=== PATIENT | male | born 1960 | race Caucasian/White ===

== ENCOUNTER → 2017-01-20 | Outpatient (CLI) | payer BC ==
[~2017-01-20] MED LIST: ASPI81TA28 PO; DILT300C PO; GABA-112 PO; GABA1CAP PO; INDA2.5T PO; LEVO200T6 PO; LSN20 PO; METO50TA7 PO; MULTTAB58 PO; PANT40TA PO; POTA-335 PO; TADA10TA PO
--- NOTE | 2017-01-21 09:39 | DIAGNOSTIC IMAGING REPORT ---
MRI OF THE LEFT SHOULDER WITHOUT CONTRAST CLINICAL HISTORY: Persistent left shoulder pain following injury on October 29, 2016. Evaluate for rotator cuff tear. COMPARISON STUDY: No previous studies for comparison. FINDINGS: There is widening of the left AC joint interval which measures 9 mm. There is extensive fluid within the joint space of the acromioclavicular joint. There is a bone fragment which articulates with the clavicle. There is mild no evidence for dislocation of the left glenohumeral joint. There is slight posterior subluxation of humeral head with respect to the glenoid. The proximal long head of biceps tendon is intact. There is mild to moderate arthritis of the left glenohumeral joint. There is truncation with abnormal signal within the labrum which suggests a chronic tear. There may be a small paralabral cyst along the posterior aspect of the labrum. There is no full-thickness tear of the rotator cuff. Supraspinatus tendinopathy is present. IMPRESSION: 1. Left acromioclavicular joint widening with extensive fluid within the joint space and adjacent soft tissues. This may reflect an AC joint separation. Bone fragment which articulates with the clavicle could result reflect a scapular fracture or os acromiale with associated injury. 2. No full-thickness rotator cuff tear. Supraspinatus tendinopathy. 3. Suspected degenerative labral tear. Electronically signed by: Panda Mora M.D. 01/21/2017 9:38 AM Dictated Date/Time: 01/20/2017 6:30 PM
== END | disposition home or self-care (01) ==
LOC: C.MRI 17:20
PROVIDERS: ATTEND Orthopaedic Surgery Sports Medicine
DX: M25.512 Pain in left shoulder (principal); M75.92 Shoulder lesion, unspecified, left shoulder; R93.7 Abnormal findings on diagnostic imaging of other parts of musculoskeletal system

== ENCOUNTER → 2017-03-25 | Outpatient (CLI) | payer BC ==
[2017-03-25 12:24] LABS: BASO % 0.5 %; BASO ABS # 0.04 K/uL (0-0.2); COMPLETE YES; EOS % 5.9 %; HEMATOCRIT 47.8 % (42-52); IG% 0.1 %; LYMPH ABS # 2.03 K/uL (1.2-3.4); MEAN CELL VOLUME 80.5 fL (80-100); MEAN CORPUSCULAR HEMOGLOBIN 26.8 pg (25-34); MEAN CORPUSCULAR HGB CONC 33.3 g/dl (32-36); MEAN PLATELET VOLUME 10.1 fL (7.4-10.4); MONO % 5.4 %; NEUT % 62.1 %; PLATELET COUNT 235 K/uL (130-400); RED BLOOD COUNT 5.94 M/uL (4.7-6.1); WHITE BLOOD COUNT 7.82 K/uL (4.8-10.8)
[2017-03-25 12:38] LABS: URINE APPEARANCE CLEAR (CLEAR); URINE BILIRUBIN NEG (NEG); URINE COLOR YELLOW; URINE EPITHELIAL CELL AUTO 0-5 /lpf (0-5); URINE NITRITE NEG (NEG); URINE PH 8.5 (4.5-7.5); URINE SPECIFIC GRAVITY 1.021 (1.000-1.030); UROBILINOGEN NEG (NEG)
[2017-03-25 12:45] LABS: MANUAL MICROSCOPIC REQUIRED? NO; REVIEW REQ? NO
[2017-03-25 13:31] LABS: ESTIMATED AVERAGE GLUCOSE 114 mg/dl; HA1C FLAG Normal (Normal)
[2017-03-25 13:39] LABS: BLOOD UREA NITROGEN 19 mg/dl (7-18); BUN/CREATININE RATIO 17.2 (10-20); CARBON DIOXIDE 30 mmol/L (21-32); CHLORIDE 105 mmol/L (98-107); CHOLESTEROL 202 mg/dl (0-200); GLUCOSE 102 mg/dl (70-99); POTASSIUM 3.2 mmol/L (3.5-5.1); SODIUM 143 mmol/L (136-145); TRIGLYCERIDES 241 mg/dl (0-150); VERY LOW DENSITY LIPOPROT CALC 48 mg/dl
[2017-03-25 13:46] LABS: CALCIUM 9.2 mg/dl (8.5-10.1)
[2017-03-25 13:49] LABS: CHOLESTEROL/HDL RATIO 5.9; HDL CHOLESTEROL 34 mg/dl; LDL CHOLESTEROL CALCULATED 120 mg/dl; PROSTATE SPECIFIC ANTIGEN 0.446 ng/ml (0.000-4.000); THYROID STIMULATING HORMONE 0.033 uIu/ml (0.300-4.500)
--- NOTE | 2017-03-31 14:25 | CODING QUERY MEDICAL NECESSITY ---
CQSUPPORTING DIAGNOSIS NEEDED A supporting diagnosis is required for the test/procedure performed on this patient in order for us to be reimbursed by the patient's insurance. Please provide a supporting diagnosis for the following test/procedure listed below next to the test name along with your signature. *If there is no additional diagnosis for this patient that would support the following test/procedure please document that below next to the test/procedure. Test(s)/Procedure(s) that require a supporting diagnosis: DOS 03/25/17 PROSTATE SPECIFIC Provider Signature: Date: Thank you Leona Huffman [employer] Once completed, please kindly fax back to [phone] For questions please call [phone]
== END | disposition home or self-care (01) ==
LOC: C.LAB1850 10:18
PROVIDERS: ATTEND Internal Medicine
DX: I10 Essential (primary) hypertension (principal); Z00.00 Encounter for general adult medical examination without abnormal findings; R73.9 Hyperglycemia, unspecified; Z12.5 Encounter for screening for malignant neoplasm of prostate

== ENCOUNTER → 2017-11-03 | Outpatient (CLI) | payer BC ==
--- NOTE | 2017-11-03 16:04 | DIAGNOSTIC IMAGING REPORT ---
SINUSES MIN 3 VIEWS ROUTINE CLINICAL HISTORY: J01.90 Acute [id number] COMPARISON STUDY: No previous studies for comparison. FINDINGS: There are bilateral maxillary sinus air-fluid levels. The sphenoid and frontal sinuses appear clear. Mild mucosal disease within the ethmoid sinuses is suspected.. IMPRESSION: Bilateral maxillary sinus air-fluid levels. Electronically signed by: Lauro Drew M.D. 11/03/2017 4:03 PM Dictated Date/Time: 11/03/2017 4:02 PM
== END | disposition home or self-care (01) ==
LOC: C.LAB1850 10:47
PROVIDERS: ATTEND Internal Medicine
DX: J01.90 Acute sinusitis, unspecified (principal); G62.9 Polyneuropathy, unspecified

== ENCOUNTER → 2018-02-06 | Outpatient (CLI) | payer BC ==
[~2018-02-06] MED LIST changes: +GABA100C13 PO; -GABA1CAP PO; -METO50TA7 PO; +METO50TA8 PO
== END | disposition home or self-care (01) ==
LOC: C.LABSPEC 17:01
PROVIDERS: ATTEND Physician Assistant
DX: J32.9 Chronic sinusitis, unspecified (principal)

== ENCOUNTER → 2018-02-17 | Outpatient (CLI) | payer BC ==
[2018-02-17 09:39] LABS: EOS % 0.2 %; EOS ABS # 0.02 K/uL (0-0.5); HEMATOCRIT 46.7 % (42-52); HEMOGLOBIN 16.5 g/dL (14.0-18.0); IG# 0.03 K/uL (0.00-0.02); LYMPH % 18.6 %; LYMPH ABS # 2.22 K/uL (1.2-3.4); MEAN CELL VOLUME 82.1 fL (80-100); MEAN CORPUSCULAR HGB CONC 35.3 g/dl (32-36); MEAN PLATELET VOLUME 9.9 fL (7.4-10.4); MONO % 4.1 %; MONO ABS # 0.49 K/uL (0.11-0.59); NEUT % 76.8 %; NEUT ABS # 9.18 K/uL (1.4-6.5); PLATELET COUNT 239 K/uL (130-400); RED CELL DISTRIBUTION WIDTH CV 13.2 % (11.5-14.5); RED CELL DISTRIBUTION WIDTH SD 39.9 fL (36.4-46.3); WHITE BLOOD COUNT 11.94 K/uL (4.8-10.8)
[2018-02-17 10:09] LABS: BLOOD UREA NITROGEN 15 mg/dl (7-18); CALCIUM 9.3 mg/dl (8.5-10.1); CARBON DIOXIDE 30 mmol/L (21-32); CREATININE 1.11 mg/dl (0.60-1.40); GLUCOSE 140 mg/dl (70-99); POTASSIUM 3.3 mmol/L (3.5-5.1); SODIUM 138 mmol/L (136-145)
[2018-02-17 10:17] LABS: HEMOGLOBIN A1C 5.5 % (4.5-5.6)
[2018-02-17 10:23] LABS: CHOLESTEROL 157 mg/dl (0-200); LDL CHOLESTEROL CALCULATED 81 mg/dl
== END | disposition home or self-care (01) ==
LOC: C.LAB1850 07:10
PROVIDERS: ATTEND Internal Medicine
DX: J01.90 Acute sinusitis, unspecified (principal)

== ENCOUNTER → 2018-03-04 | Outpatient (CLI) | payer BC ==
--- NOTE | 2018-03-04 07:34 | DIAGNOSTIC IMAGING REPORT ---
FUSION CT SINUSES W/O CLINICAL HISTORY: CHRONIC SINUSITIS COMPARISON STUDY: Conventional radiographic study dated 11/03/2017 FINDINGS: There is no evidence of hydrocephalus. No orbital lesions are visualized. There is an opacified left-sided sphenoid air cell. There is complete opacification of the left maxillary sinus. There is mild left anterior ethmoid sinus disease. There is minimal anterior right-sided ethmoid sinus disease. There is left-sided frontal sinus mucosal thickening. There is minor right-sided exercise mucosal thickening. The right ostomy unit appears normal. There is partial pneumatization of the left middle turbinate. The ostial portion of the left ostiomeatal unit is occluded. There is possible bony destruction involving the medial wall the left maxillary antrum with soft tissue extending into the left nasal cavity. Direct visualization is recommended to exclude an antrochoanal polyp or aggressive soft tissue lesion. The left ethmoid notches are unprotected. The right ethmoid notches is equivocally protected. The right olfactory groove measures 5 mm. The left olfactory groove measures 7 mm. IMPRESSION: 1. Left ostomy unit obstructive pattern with complete opacification left maxilla sinus, left ethmoid sinus disease, left frontal sinus disease 2. Partial pneumatization of the left middle turbinate 3. Possible destructive changes involving the medial wall the left maxilla sinus with possible soft tissue extending into the left nasal cavity. Direct visualization is recommended in follow-up Electronically signed by: Lauro Drew M.D. 03/04/2018 7:32 AM Dictated Date/Time: 03/04/2018 7:27 AM
== END | disposition home or self-care (01) ==
LOC: C.CTS 07:09
PROVIDERS: ATTEND Physician Assistant
DX: J32.9 Chronic sinusitis, unspecified (principal)

== ENCOUNTER 2019-03-10 09:21 | Inpatient (IN) ==
--- OUTSIDE RECORDS SUMMARY | 2019-03-10 09:25 | External Medical Summary | Continuity of Care Document ---
:1960 Author Name Radha Smalls, Provider Address Unavailable Unavailable , Care Team Providers Name Role Phone Kinjal Wolff PA-C Unavailable [email or web address] Wendi Smalls, Jonathan Unavailable [email or web address] Elvin Smalls, [email or web address] OCONNOR Unavailable Unavailable Unavailable Unavailable Unavailable Problems Fatigue (780.79) (R53.83) Xerostomia (527.7) (R68.2) Hiatal hernia (553.3) (K44.9) Anemia (285.9) (D64.9) Tachycardia (785.0) (R00.0) Headache (784.0) (R51) Contusion of chest (922.1) (S20.219A) Rib fracture (807.00) (S22.39XA) Need for influenza vaccination (V04.81) (Z23) Lumbar radiculopathy (724.4) (M54.16) Nasal septal deviation (470) (J34.2) Chronic sinusitis (473.9) (J32.9) Reactive lymphadenopathy (785.6) (R59.9) Norton's esophagus (530.85) (K22.70) Peripheral neuropathy (356.9) (G62.9) Perforated nasal septum (478.19) (J34.89) Sinusitis (473.9) (J32.9) Hypertension (401.9) (I10) Hyperglycemia (790.29) (R73.9) Hypothyroidism (244.9) (E03.9) Gastroesophageal reflux disease (530.81) (K21.9) Osteoarthritis (715.90) (M19.90) Cough (786.2) (R05) Skin lesions (709.9) (L98.9) Allergies and Adverse Reactions No Known Drug Allergies (Allergy) Medications Tylenol Extra Strength 500 MG Oral Table t; TAKE 1 TABLET EVERY 4 TO 6 HOURS NEEDED. Start: 08-Dec-2014 Refills: 0 Levothyroxine Sodium 175 MCG Oral Tablet; Take 1 table t daily [place] Wolff Quantity: 90 Refills: 3 Metoprolol Succinate ER 50 MG Oral Table t Extended Release 24 Hour; TAKE 1 TABLET BY MOUTH EVERY DAY [place] Wolff Start: 26-Apr-2011 Quantity: 90 Refills: 3 Indapamide 2.5 MG Oral Tablet; TAKE 1 TABLET BY MOUTH EVERY DAY [place] Wolff Start: 26-Apr-2011 Quantity: 90 Refills: 3 Potassium Chloride Susan ER 20 MEQ Oral T ablet Extended Release; TAKE 1 TABLET BY MOUTH EVERY DAY [place] Wolff Start: 26-Apr-2011 Quantity: 90 Refills: 3 Lisinopril 20 MG Oral Tablet; TAKE 1 TABLET BY MOUTH E VERY [place] Wolff Start: 26-Apr-2011 Quantity: 90 Refills: 3 Pantoprazole Sodium 40 MG Oral Tablet De layed Release; TAKE 1 TABLET BY MOUTH EVERY DAY [place] Wolff Start: 26-Apr-2011 Quantity: 90 Refills: 3 Gabapentin 300 MG Oral Capsule; TAKE 1 C APSULE EVERY MORNING AND 2 CAPSULES EVERYEVENING [place] Wolff Start: 18-Jan-2016 Quantity: 270 Refills: 3 Multi-Vitamin TABS; TAKE 1 TABLET DAILY. Refills: 0 Aspirin 81 MG TABS; TAKE 1 TABLET DAILY. Refills: 0 Sildenafil Citrate 100 MG Oral Tablet; TAKE DIRECTED. Serina Borja Start: 27-Jul-2018 Quantity: 10 Refills: 1 Mupirocin 2 % External Ointment; APPLY SMALL AMOUNT IN SIDE NOSTRILS TWICE DAILY Serina Adame Start: 24-Sep-2018 Quantity: 1 22 GM Tube Refills: 3 Procedures History of hip surgery Status: Completed History of Ankle Repair Status: Complete d History of abdominal surgery Status: Com pleted History of Sinus Surgery Status: Complet ed Immunizations Influenza On: 22-Sep-2009 PPD On: 30-Apr-2011 12:27 Lot #: [id number], [employer] Influenza (Whole) On: 16-Aug-2011 15:29 Lot #: [id number], [employer] PPD On: 20-Jul-2012 15:46 Lot #: [id number], [employer] Influenza (Whole) On: 13-Nov-2012 15:52 Lot #: [id number], [employer] Influenza On: 29-Jul-2013 11:07 Lot #: [id number], [employer] PPD On: 29-Jul-2013 11:07 Lot #: [id number], [employer] Fluzone INJ On: 28-Jul-2014 10:43 Lot #: [id number], [employer] PPD On: 28-Jul-2014 10:45 Lot #: [id number], [employer] Influenza (Whole) On: 25-Jul-2015 11:56 Lot #: [id number], [employer] PPD On: 25-Jul-2015 11:57 Lot #: [id number], [employer] Influenza On: 24-Jul-2016 16:37 Lot #: [id number], [employer] PPD On: 24-Jul-2016 16:44 Lot #: [id number], [employer] Tubersol 5 UNIT/0.1ML Intradermal Solution On: 07-Jul-2017 1 4:33 Lot #: [id number], [employer] Fluzone Quadrivalent 0.5 ML Intramuscular Suspension On: Jun-2017 14:36 Lot #: [id number], [employer] Tubersol 5 UNIT/0.1ML Intradermal Solution On: 09-Jul-2018 1 1:07 Lot #: [id number], [employer] Flublok Quadrivalent 0.5 ML Intramuscular Solution Pre filled Syringe On: 31-Aug-2018 16:56 Lot #: [id number], [employer] Tubersol 5 UNIT/0.1ML Intradermal Solution On: 31-Aug-2018 1 6:58 Lot #: [id number], [employer] Family History Mother Family history of Hypertension (V17.49) Status: Active Social History - Smoking Status Never smoker Plan of Treatment Planned Encounters Appointment; Judah Oconnor M.D. Start: 19-Apr-2019 14:00 Request Planned Observations Planned Goals not documented Results No Known Results Results not documented Encounters Appointment; Judah Oconnor M.D. 18-Jan-2019 13:30 Encounter Diagnosis: Problem not documented Appointment; Jonathan Adame M.D. 05-Nov-2018 15:40 Encounter Diagnosis: Problem not documented Appointment; Tanja Hammond PA-C 04-Nov-2018 10:00 Encounter Diagnosis: Problem not documented Appointment; Kinjal Wolff PA-C 02-Nov-2018 13:30 Encounter Diagnosis: Problem not documented Appointment; Jonathan Adame M.D. 24-Sep-2018 15:50 Encounter Diagnosis: Problem not documented Appointment; [facility] 31-Aug-2018 16:00 Encounter Diagnosis: Problem not documented Appointment; [facility] 31-Aug-2018 16:00 Encounter Diagnosis: Problem not documented Appointment; Kinjal Wolff PA-C 13-Jul-2018 13:00 Encounter Diagnosis: Problem not documented Appointment; [facility], Nursing Station 09-Jul-2018 11:00 Encounter Diagnosis: Problem not documented Appointment; Judah Oconnor M.D. 29-Jun-2018 13:15 Encounter Diagnosis: Problem not documented Appointment; Jonathan Adame M.D. 15-Jun-2018 15:10 Encounter Diagnosis: Problem not documented Appointment; Jonathan Adame M.D. 21-Apr-2018 15:45 Encounter Diagnosis: Problem not documented Appointment; Jonathan Adame M.D. 03-Apr-2018 10:00 Encounter Diagnosis: Problem not documented Appointment; Jonathan Adame M.D. 02-Apr-2018 16:00 Encounter Diagnosis: Problem not documented Appointment; Jonathan Adame M.D. 05-Mar-2018 15:50 Encounter Diagnosis: Problem not documented Appointment; Judah Oconnor M.D. 17-Feb-2018 11:45 Encounter Diagnosis: Problem not documented Appointment; Kenzie Amaro PA-C 06-Feb-2018 15:00 Encounter Diagnosis: Problem not documented Appointment; Judah Oconnor M.D. 03-Nov-2017 14:00 Encounter Diagnosis: Problem not documented Appointment; [facility] 10-Jul-2017 9:15 Encounter Diagnosis: Problem not documented Appointment; [facility] 09-Jul-2017 16:00 Encounter Diagnosis: Problem not documented Appointment; [facility] 07-Jul-2017 14:30 Encounter Diagnosis: Problem not documented Appointment; Judah Oconnor M.D. 27-Mar-2017 14:30 Encounter Diagnosis: Problem not documented Appointment; Judah Oconnor M.D. 19-Apr-2019 14:00 Encounter Diagnosis: Problem not documented
[2019-03-10] MEDS ORDERED: HYDROmorphone INJ 0.5 MG/0.5 ML SYR IV STA (09:59)
[2019-03-10] MEDS ORDERED: ONDANSETRON INJ 2 MG/ML 2 ML VIAL IV STA (09:59)
[2019-03-10] MEDS ORDERED: SODIUM CHLORIDE 0.9% 1000ML 1,000 ML IV SCH (10:00)
--- NOTE | 2019-03-10 10:37 | Emergency Department Note ---
Entered by Naye Neville acting as a scribe for Mitch Morrison MD ED Provider Note CHIEF COMPLAINT: Headache HISTORY OF PRESENT ILLNESS: The patient is a 58 year old male who presents to the Emergency Room with comp laints of a headache that began 4 days ago. He states that his headache is posterior and superior and rates his pain at an 8/10. He states that he has had chills but did not take his temperature so is unsure if he has been febrile. He states that he has taken Aspirin and Celebrex for his symptoms. He does report having fleeting nausea the first 2 days of his symptoms. He denies having photophobia and phonophobia. The patient also denies having an aura or visual disturbance. 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 Pt denies LOC, diaphoresis, visual changes, neck pain, chest pain, breathing difficulties, vomiting, abdominal pain, back pain, melena, hematochezia, urinary symptoms, numbness, weakness, lymphadenopathy, rash, or other complaints. REVIEW OF SYSTEMS: See HPI for pertinent positives and negatives. A total of ten systems were reviewed and were otherwise negative. PMHx/PSHx: Norton's esophagus, cellulitis SOCIAL HISTORY: Patient lives at home. PHYSICAL EXAM: GENERAL: Awake, alert, well-appearing, in no distress HENT: Normocephalic, atraumatic. Oropharynx unremarkable. EYES: PERRL. Normal conjunctiva. Sclera non-icteric. NECK: Inspection normal. Non-tender. Supple. No nuchal rigidity. FROM. No ma sses. RESPIRATORY: Clear to auscultation. No wheezes. No rales. Normal respiratory effort. CARDIAC: Normal rate. Normal rhythm. No murmurs. No rubs. Extremities warm and well perfused. Pulses equal. No JVD. GI: Soft, non-distended. No tenderness to palpation. No rebound or guarding. No masses. RECTAL: Deferred. MUSCULOSKELETAL: Atraumatic. Chest examination reveals no tenderness. The back is symmetrical on inspection without obvious abnormality. There is no CVA tenderness to palpation. No joint edema. LOWER EXTREMITIES: Calves are equal size bilaterally and non-tender. No edema. No discoloration. NEURO: Normal sensorium. No sensory or motor deficits noted. No pronator drift. Normal rapid alternating movements. Cranial nerves intact. SKIN: No rash or jaundice noted. EMERGENCY DEPARTMENT COURSE: 09: Past medical records reviewed. The patient was evaluated in room A3, and a complete history and physical examination were performed. 1126: I reevaluated the patient. He feels a little better. 1146: I performed a lumbar puncture on the patient. 1218: I discussed the patient's case with Dr. Wheeler-Jose C who will send a tech over for an echo. 1222: I discussed the patient's case with Dr. Vincenzo Reed who will evaluate the patient for further management. 1306: I updated the patient on his results from the LP. MEDICAL DECISION MAKING: Triage Nursing notes reviewed and agree them. The patient's history was concerning for headache. Differential diagnosis: Etiologies such as migraine headache, meningitis, sinusitis, CO exposure, ICH, SAH, infection, tumor, headache, sinus thrombosis, arterial dissection, as well as others were entertained. Physical examination findings: As above. Non-focal. ER treatment provided: Monitoring IV Zofran IV Dilaudid 0.5 mg On reassessment the patient felt better. Diagnostics interpreted by me: ECG: Normal except for PACs The labs revealed an unremarkable CBC and chemistry panel. The patient's troponin is mildly elevated. CSF studies were negative. 0 white cells 0 red cells. His fluid was not xanthochromic. Patient's Lyme IgM was positive. Imaging studies: CT scan of the head was performed and was negative. The patient had a significant headache. CT scan was negative. His LP revealed an elevated opening pressure of 40. The patient had no signs of meningitis. His troponin was elevated as well. I did discuss this with cardiology as well as internal medicine. The patient was admitted by internal medicine. Cardiology did perform a bedside echo. With the above treatment he did feel better with regards to his headache. Dr. Cunningham of internal medicine will admit the patient. We did discuss antibiotics and she will administer. IMPRESSION: Acute headache, elevated troponin, elevated intracranial pressure, hypokalemia, Lyme disease PLAN: Admission The scribe's documentation has been prepared under my direction and personally reviewed by me in its entirety. I confirm that the note above accurately reflects all work, treatment, procedures, and medical decision making performed by me. Lumbar Puncture Indication: headache. Verbal consent was obtained after the risks and benefits were explained, including but not limited to headache, bleeding/clotting, scarring, infection, pain, and bone/joint/nerve damage. At this time, the risks of the procedure are less than the risks of NOT performing the procedure. A time out was taken and the correct patient and site identified. The patient was placed in the left lateral decubitus position and the back was prepped with betadine and draped in the standard fashion. The L3 intervertebral space was identified, anesthetized locally with 1% lidocaine without epinephrine, and the spinal needle was inserted through the skin with the bevel parallel to the dural fibers. Opening pressure was 40. The needle was carefully advanced into the lumbar cistern and 4 tubes of clear CSF was obtained. The stylet was replaced and the needle was removed. A bandaid was placed and the patient was placed in the supine position. The patient tolerated the procedure well and there were no complications. Impression & Plan Headache, Elevated troponin, Elevated intracranial pressure, Hypokalemia, Lyme disease Past Med/Surg History Medical History Barretts esophagus GERD (gastroesophageal reflux disease) Hypertension Hypothyroidism Surgical History History of abdominal surgery mesenteric artery repair History of adenoidectomy History of ankle fusion right History of endoscopic sinus surgery History of surgery right neck lymph node removal with radiation therapy (was benign) History of tooth extraction wisdom teeth Hx of vasectomy Status post total hip resurfacing left Social History Preferred Language: Burmese Communication Ability: Effective Beliefs That Will Affect Care: None Current Living Situation: Spouse Other Information That Helps Us Care for You: No Feels Safe at Home: Yes Safety Concerns: Feels Safe At This Time Smoking Status: Never smoker Second Hand Exposure: No Hx Alcohol Use: Yes Alcohol type: beer, wine and hard liquor Hx Substance Use: No Results & Data Vital Signs Vital Signs - 24 hr 03/10/19 09:24 03/10/19 11:00 03/10/19 12:15 Temperature 36.7 C Temperature Source Oral Sepsis Recent Fever Within 48 Hours Yes Sepsis Action Taken by Nursing No Action Required Pulse Rate 100 H Pulse Rate [Apical] 90 97 H Pulse Rhythm Regular Pulse Strength Normal Respiratory Rate 18 20 20 Respiratory Effort / Characteristics Non-Labored Respiratory Depth Normal Blood Pressure 147/94 H Blood Pressure [Right Arm] 139/95 135/86 Blood Pressure Mean 111 Blood Pressure Mean [Right Arm] 109 102 Blood Pressure Position Sitting Pulse Oximetry 97 97 95 Oxygen Delivery Method Room Air Room Air Room Air Oxygen Flow Rate 03/10/19 12:20 03/10/19 12:23 03/10/19 12:55 Temperature Temperature Source Sepsis Recent Fever Within 48 Hours Sepsis Action Taken by Nursing Pulse Rate Pulse Rate [Apical] 85 Pulse Rhythm Pulse Strength Respiratory Rate 20 Respiratory Effort / Characteristics Respiratory Depth Blood Pressure Blood Pressure [Right Arm] 158/100 H Blood Pressure Mean Blood Pressure Mean [Right Arm] 119 Blood Pressure Position Pulse Oximetry 86 L 96 96 Oxygen Delivery Method Room Air Nasal Cannula Room Air Oxygen Flow Rate 2 Home Medications Current Medication List: was personally reviewed by me Laboratory Data Attestation: I reviewed the patient's lab results. Result diagrams: 03/10/19 10:44 03/10/19 10:49 Lab Results 03/10/19 03/10/19 03/10/19 Range/Units 10:44 10:44 10:44 WBC 6.11 (4.8-10.8) K/uL RBC 5.38 (4.7-6.1) M/uL Hgb 16.1 (14.0-18.0) g/dL Hct 44.8 (42-52) % MCV 83.3 (80-100) fL MCH 29.9 (25-34) pg MCHC 35.9 (32-36) g/dL RDW Std Deviation 39.5 (36.4-46.3) fL RDW Coeff of Brent 13.2 (11.5-14.5) % Plt Count 134 (130-400) K/uL MPV 9.8 (7.4-10.4) fL Immature Gran % (Auto) 0.2 % Neut % (Auto) 77.9 % Lymph % (Auto) 14.2 % Ramsey % (Auto) 7.5 % Eos % (Auto) 0.2 % Baso % (Auto) 0.0 % Immature Gran # (Auto) 0.01 (0.00-0.02) K/uL Neut # (Auto) 4.76 (1.4-6.5) K/uL Lymph # (Auto) 0.87 L (1.2-3.4) K/uL Ramsey # (Auto) 0.46 (0.11-0.59) K/uL Eos # (Auto) 0.01 (0-0.5) K/uL Baso # (Auto) 0.00 (0-0.2) K/uL ESR 16 H (0-14) mm/hr Sodium (136-145) mmol/L Potassium (3.5-5.1) mmol/L Chloride (98-107) mmol/L Carbon Dioxide (21-32) mmol/L Anion Gap (3-11) BUN (7-18) mg/dl Creatinine (0.6-1.4) mg/dl Est Cr Clr Drug Dosing ml/min Est GFR ( Amer) Est GFR (Non-Af Amer) BUN/Creatinine Ratio (10-20) Glucose (70-99) mg/dl Calcium (8.5-10.1) mg/dl Phosphorus (2.5-4.9) mg/dl Magnesium (1.8-2.4) mg/dl Total Bilirubin (0.2-1) mg/dl AST (15-37) U/L ALT (12-78) U/L Alkaline Phosphatase (45-117) U/L Troponin I Total Protein (6.4-8.2) gm/dl Albumin (3.4-5.0) gm/dl Globulin (2.5-4.0) gm/dl Albumin/Globulin Ratio (0.9-2) CSF Appearance CSF Color Xanthrochromic CSF WBC (0-5) /uL CSF RBC (0-) /uL CSF Cell Count Tube # CSF Chemistry Tube # CSF Glucose (40-70) mg/dl CSF Total Protein (15-45) mg/dl Lyme Disease IgG Ab Negative (Negative) Lyme Disease IgM Ab Positive A (Negative) 03/10/19 03/10/19 03/10/19 Range/Units 10:44 10:49 10:49 WBC (4.8-10.8) K/uL RBC (4.7-6.1) M/uL Hgb (14.0-18.0) g/dL Hct (42-52) % MCV (80-100) fL MCH (25-34) pg MCHC (32-36) g/dL RDW Std Deviation (36.4-46.3) fL RDW Coeff of Brent (11.5-14.5) % Plt Count (130-400) K/uL MPV (7.4-10.4) fL Immature Gran % (Auto) % Neut % (Auto) % Lymph % (Auto) % Ramsey % (Auto) % Eos % (Auto) % Baso % (Auto) % Immature Gran # (Auto) (0.00-0.02) K/uL Neut # (Auto) (1.4-6.5) K/uL Lymph # (Auto) (1.2-3.4) K/uL Ramsey # (Auto) (0.11-0.59) K/uL Eos # (Auto) (0-0.5) K/uL Baso # (Auto) (0-0.2) K/uL ESR (0-14) mm/hr Sodium 137 (136-145) mmol/L Potassium 3.1 L (3.5-5.1) mmol/L Chloride 99 (98-107) mmol/L Carbon Dioxide 32 (21-32) mmol/L Anion Gap 7.0 (3-11) BUN 16 (7-18) mg/dl Creatinine 1.35 (0.6-1.4) mg/dl Est Cr Clr Drug Dosing 87.5 ml/min Est GFR ( Amer) 67.1 Est GFR (Non-Af Amer) 57.9 BUN/Creatinine Ratio 11.6 (10-20) Glucose 106 H (70-99) mg/dl Calcium 8.7 (8.5-10.1) mg/dl Phosphorus 2.6 (2.5-4.9) mg/dl Magnesium 2.3 (1.8-2.4) mg/dl Total Bilirubin 1.0 (0.2-1) mg/dl AST 56 H (15-37) U/L ALT 74 (12-78) U/L Alkaline Phosphatase 60 (45-117) U/L Troponin I Cancelled 0.077 H* Total Protein 7.4 (6.4-8.2) gm/dl Albumin 3.5 (3.4-5.0) gm/dl Globulin 3.9 (2.5-4.0) gm/dl Albumin/Globulin Ratio 0.9 (0.9-2) CSF Appearance CSF Color Xanthrochromic CSF WBC (0-5) /uL CSF RBC (0-) /uL CSF Cell Count Tube # CSF Chemistry Tube # CSF Glucose (40-70) mg/dl CSF Total Protein (15-45) mg/dl Lyme Disease IgG Ab (Negative) Lyme Disease IgM Ab (Negative) 03/10/19 03/10/19 Range/Units 11:50 11:50 WBC (4.8-10.8) K/uL RBC (4.7-6.1) M/uL Hgb (14.0-18.0) g/dL Hct (42-52) % MCV (80-100) fL MCH (25-34) pg MCHC (32-36) g/dL RDW Std Deviation (36.4-46.3) fL RDW Coeff of Brent (11.5-14.5) % Plt Count (130-400) K/uL MPV (7.4-10.4) fL Immature Gran % (Auto) % Neut % (Auto) % Lymph % (Auto) % Ramsey % (Auto) % Eos % (Auto) % Baso % (Auto) % Immature Gran # (Auto) (0.00-0.02) K/uL Neut # (Auto) (1.4-6.5) K/uL Lymph # (Auto) (1.2-3.4) K/uL Ramsey # (Auto) (0.11-0.59) K/uL Eos # (Auto) (0-0.5) K/uL Baso # (Auto) (0-0.2) K/uL ESR (0-14) mm/hr Sodium (136-145) mmol/L Potassium (3.5-5.1) mmol/L Chloride (98-107) mmol/L Carbon Dioxide (21-32) mmol/L Anion Gap (3-11) BUN (7-18) mg/dl Creatinine (0.6-1.4) mg/dl Est Cr Clr Drug Dosing ml/min Est GFR ( Amer) Est GFR (Non-Af Amer) BUN/Creatinine Ratio (10-20) Glucose (70-99) mg/dl Calcium (8.5-10.1) mg/dl Phosphorus (2.5-4.9) mg/dl Magnesium (1.8-2.4) mg/dl Total Bilirubin (0.2-1) mg/dl AST (15-37) U/L ALT (12-78) U/L Alkaline Phosphatase (45-117) U/L Troponin I Total Protein (6.4-8.2) gm/dl Albumin (3.4-5.0) gm/dl Globulin (2.5-4.0) gm/dl Albumin/Globulin Ratio (0.9-2) CSF Appearance Clear CSF Color Colorless Xanthrochromic No xanthochromia CSF WBC 0 (0-5) /uL CSF RBC 0 (0-) /uL CSF Cell Count Tube # 3 CSF Chemistry Tube # 1 CSF Glucose 66 (40-70) mg/dl CSF Total Protein 43.1 (15-45) mg/dl Lyme Disease IgG Ab (Negative) Lyme Disease IgM Ab (Negative) Administered Medications Acetaminophen (Tylenol) 500 mg PO Q6H PRN PRN Reason: Pain Stop: 04/09/19 14:50 Last Admin: 03/10/19 16:05 Dose: 500 mg Documented by: [id number] Hydromorphone HCl (Dilaudid) 1 mg IV Q4 PRN PRN Reason: Pain Stop: 03/24/19 17:38 Last Admin: 03/10/19 17:47 Dose: 1 mg Documented by: [id number] Sodium Chloride (Nss 1000ml) 1,000 mls @ 125 mls/hr IV .Q8H STA Stop: 03/10/19 19:43 Last Infusion: 03/10/19 16:05 Dose: 125 mls/hr Documented by: [id number] Infusion: 03/10/19 15:25 Dose: 0 mls/hr Documented by: [id number] Admin: 03/10/19 11:57 Dose: 125 mls/hr Documented by: [id number] Tramadol HCl (Ultram) 50 mg PO Q4H PRN PRN Reason: Pain Stop: 04/09/19 14:50 Last Admin: 03/10/19 16:03 Dose: 50 mg Documented by: [id number] Discontinued Medications Hydromorphone HCl (Dilaudid) 0.5 mg IV NOW STA Stop: 03/10/19 10:00 Last Admin: 03/10/19 10:41 Dose: 0.5 mg Documented by: [id number] Hydromorphone HCl (Dilaudid) 1 mg IV Q15M PRN PRN Reason: Pain Stop: 03/24/19 11:43 Last Admin: 03/10/19 14:21 Dose: 1 mg Documented by: [id number] Admin: 03/10/19 11:54 Dose: 1 mg Documented by: [id number] Sodium Chloride (Nss 1000ml) 1,000 mls @ 999 mls/hr IV .Q1H1M SHAVON Stop: 03/10/19 11:00 Last Infusion: 03/10/19 11:43 Dose: 0 mls/hr Documented by: [id number] Admin: 03/10/19 10:42 Dose: 999 mls/hr Documented by: [id number] Potassium Chloride (K Marino / Wtr) 10 meq in 100 mls @ 100 mls/hr IV ONE ONE Stop: 03/10/19 12:44 Last Infusion: 03/10/19 13:10 Dose: 0 mls/hr Documented by: [id number] Admin: 03/10/19 11:56 Dose: 100 mls/hr Documented by: [id number] Doxycycline Hyclate 100 mg/ (Dextrose) 110 mls @ 50 mls/hr IV NOW STA Stop: 03/10/19 15:15 Last Infusion: 03/10/19 16:48 Dose: 0 mls/hr Documented by: [id number] Infusion: 03/10/19 16:05 Dose: 50 mls/hr Documented by: [id number] Infusion: 03/10/19 15:24 Dose: 0 mls/hr Documented by: [id number] Admin: 03/10/19 13:44 Dose: 50 mls/hr Documented by: [id number] Lidocaine HCl (Buffered Lidocaine 1%) 20 ml INFIL NOW ONE Stop: 03/10/19 11:45 Last Admin: 03/10/19 11:56 Dose: 20 ml Documented by: [id number] Ondansetron HCl (Zofran) 4 mg IV NOW STA Stop: 03/10/19 10:00 Last Admin: 03/10/19 10:41 Dose: 4 mg Documented by: [id number] Perflutren Lipid Microsphere (Definity) 1.5 ml IV ONCE ONE Stop: 03/10/19 13:34 Last Admin: 03/10/19 13:34 Dose: 2 ml Documented by: [id number] Potassium Chloride (Klor-Con M20) 60 meq PO NOW ONE Stop: 03/10/19 15:31 Last Admin: 03/10/19 15:19 Dose: 60 meq Documented by: [id number] Radiology results as stated below per my review and the radiologist's interpretation: HEAD CT NONCONTRAST CT DOSE: 614.27 mGy.cm HISTORY: Headache TECHNIQUE: Multiaxial CT images of the head were performed without the use of intravenous contrast. Automated exposure control was utilized for this study. A dose lowering technique was utilized adhering to the principles of ALARA. Comparison: None. Findings: The paranasal sinuses and mastoid air cells are clear. The calvarium and skull base are intact. The ventricles and sulci are within normal limits. There is no mass, hematoma, midline shift, or acute infarct. Impression: No acute intracranial abnormality. Electronically signed by: Dandre Jain M.D. 03/10/2019 11:34 AM ECG Data Attestation: I personally reviewed and interpreted this ECG as follows: Indication: other (headache) Rate (beats per minute): 91 Rhythm: sinus rhythm Findings: + PAC; no PVC, no ST depression, no ST elevation and no acute ischemic change Discharge Plan Visit Data *Final* Discharge Date/Time: 03/10/19 14:03 Chief Complaint: Headache Stated Complaint: CHILLS, SWEATS, HEADACHE FOR FOUR DAYS ED Provider: Mitch Morrison Discharge Problem: Headache, Elevated troponin, Elevated intracranial pressure, Hypokalemia, Lyme disease Patient Disposition: Admitted As Inpatient Discharge Instructions Interventions: ED Discharge Assessment Last Done: 03/10/19 14:03 Discharge Problem: Headache Qualifiers: Headache type: unspecified Headache chronicity pattern: unspecified pattern Intractability: intractable Qualified Code(s): R51 - Headache The scribe's documentation has been prepared under my direction and personally reviewed by me in its entirety. I confirm that the note above accurately reflects all work, treatment, procedures, and medical decision making performed by me.
[2019-03-10 10:59] LABS: Eosinophils # (auto) 0.01 K/uL (0-0.5); Eosinophils % (auto) 0.2 %; Hematocrit (blood only) 44.8 % (42-52); Hemoglobin 16.1 g/dL (14.0-18.0); Immature Granulocytes # (auto) 0.01 K/uL (0.00-0.02); Immature Granulocytes % (auto) 0.2 %; Lymphocytes # (auto) 0.87 K/uL (1.2-3.4); Lymphocytes % (auto) 14.2 %; Mean Corpuscular Hgb Conc 35.9 g/dL (32-36); Mean Corpuscular Volume 83.3 fL (80-100); Mean Platelet Volume 9.8 fL (7.4-10.4); Monocytes # (auto) 0.46 K/uL (0.11-0.59); Monocytes % (auto) 7.5 %; Neutrophils # (auto) 4.76 K/uL (1.4-6.5); Neutrophils % (auto) 77.9 %; Platelet Count 134 K/uL (130-400); RDW Coefficient of Variation 13.2 % (11.5-14.5); RDW Standard Deviation 39.5 fL (36.4-46.3); Red Blood Count 5.38 M/uL (4.7-6.1); White Blood Count 6.11 K/uL (4.8-10.8)
[2019-03-10 11:19] LABS: Albumin Level 3.5 gm/dl (3.4-5.0); BUN Creatinine Ratio 11.6 (10-20); Calcium 8.7 mg/dl (8.5-10.1); Creatinine Clr Calc Pharmacy 87.5 ml/min; Est GFR (African American) 67.1; Est GFR (Non-African American) 57.9; Potassium 3.1 mmol/L (3.5-5.1)
[2019-03-10 11:27] LABS: Albumin Globulin Ratio 0.9 (0.9-2); Globulin 3.9 gm/dl (2.5-4.0); Total Protein 7.4 gm/dl (6.4-8.2); Troponin I 0.077 ng/ml (0-0.045)
--- NOTE | 2019-03-10 11:36 | CT Scan Report ---
HEAD CT NONCONTRAST CT DOSE: 614.27 mGy.cm HISTORY: Headache TECHNIQUE: Multiaxial CT images of the head were performed without the use of intravenous contrast. A utomated exposure control was utilized for this study. A dose lowering technique was utilized adheri ng to the principles of ALARA. Comparison: None. Findings: The paranasal sinuses and mastoid air cells are clear. The calvarium and skull base are int act. The ventricles and sulci are within normal limits. There is no mass, hematoma, midline shift, or acute infarct. Impression: No acute intracranial abnormality. Electronically signed by: Dandre Jain M.D. 03/10/2019 11:34 AM
[2019-03-10] MEDS ORDERED: SODIUM CHLORIDE 0.9% 1000ML 1,000 ML IV STA (11:44)
[2019-03-10] MEDS ORDERED: XYLOCAINE 1%/SOD BICARB 20 ML VIAL INFIL ONE (11:44)
[2019-03-10] MEDS ORDERED: POTASSIUM CHLORIDE / WTR 10 MEQ/100 ML PLCT IV ONE (11:45)
[2019-03-10 11:52] LABS: Lyme Ab IgG w/WB Rflx Negative (Negative); Lyme Ab IgM w/WB Rflx Positive (Negative)
[2019-03-10] MEDS: HYDROmorphone INJ 1 MG/ML SYRINGE IV PRN ×4 (11:54→21:44)
[2019-03-10 12:53] LABS: Total Protein CSF 43.1 mg/dl (15-45)
[2019-03-10 12:54] LABS: Appearance CSF Clear; CSF Count Tube # 3; CSF Xanthrochromic No xanthochromia; Color CSF Colorless; White Blood Cell CSF (A) 0 /uL (0-5)
[2019-03-10 12:55] LABS: Red Blood Cell CSF (A) 0 /uL (0-); Red Blood Cell CSF (B) 0 /uL (0-); White Blood Cell CSF (B) 0 /uL (0-5)
[2019-03-10] MEDS ORDERED: DOXYCYCLINE HYCLATE 100 MG in DEXTROSE 5% 100 ML IV STA (13:04)
--- NOTE | 2019-03-10 13:24 | History & Physical Report ---
Date of Service March 10, 2019 Assessment & Plan (1) Headache: Patient with HARDEN x 4 days severe, posterior neck to bitemporal as well as chills and sweats. No neurological deficits, no visual disturbances. He recently travelled to [place]. Also with tick exposure from his yard, Lyme IgM positive. Remote history of WNV encephalitis. No peripheral leukocytosis. CT Head unremarkable. Patient neurologically intact on physical exam, no CN deficits, no papilledema appreciated on ophthalmic exam although limited. LP performed in the ER in lateral recumbent position with elevated opening pressure of 40 cmH20, otherwise unremarkable CSF. Distribution of HARDEN seems to be in a tension pattern. No relief with Advil, ASA and Celebrex at home. -Admit to medical floor -Check MRV for possible venous sinus thrombosis contributing to severe HARDEN, elevated OP. -Neuro checks q 4 hours -Doxycycline 100mg IV BID -B. Burgdorferi added onto CSF -Neurology consultation - appreciate assistance with this case Present on Admission?: Yes (2) Elevated intracranial pressure: As above. Opening pressure of 40 on bedside LP Present on Admission?: Yes (3) Elevated troponin: Patient denies CP but states he has become diaphoretic with exertion over the last few days. No history of CAD. Elevated troponin at 0.72 -Telemetry monitoring -Trend troponins -Check 2D echo for WMA -Consider Cardiology consult vs outpatient followup pending results of above -Continue ASA, Metoprolol, Lisinopril at home doses Present on Admission?: Yes (4) Lyme disease: Patient with ticks in backyard, no recent bite that he remembers. Has been treated for LD in the past. Lyme IgM positive, additional serologies pending. Some concern for lyme meningitis although remainder of CSF is unremarkable. No neurological deficits, CN intact. -Doxycycline 100mg IV BID -B. milka on CSF pending -Appreciate Neurology assistance with additional workup/management if needed Present on Admission?: Yes (5) Hypokalemia: Chronic. Patient takes PO K at home. K=3.1 here. 10mEq given in ER -Check Mag -Kdur 60mEq x 1 -Repeat BMP in AM (6) Hypertension: Mildly elevated BP here. Patient reports fairly well controlled BP outpatient -Continue Lisinopril -Continue Metoprolol Present on Admission?: Yes (7) GERD with esophagitis: Chronic. Well controlled at present -Continue PO protonix (8) Hypothyroid: Chronic. TSH=0.865 in January 2019 -Continue Synthroid F/E/N - Heplock. Electrolyte management as above. Low Na diet as tolerated Ppx - PO Protonix, patient low risk for DVT, encourage ambulation Code -Full Dispo - Observation to med/tele History of Present Illness Chief Complaint: headache Primary Care Provider: Delta Oconnor MD Ulices Schuler is a 58yo C male with history of HTN, GERD, prior history of West Nile encephalitis presenting with 4 days of headache. Patient reports increased stress at work. Recently travelled to [place] with his son. He reports poor sleep x 2-3 days. HARDEN started on Friday AM, dull, persistent and severe, pain 8-9/10 involving posterior neck and bitemporal regions. Patient also has had subjective fevers, chills and sweats for the last 4 days. Denies nausea, visual changes, neurologic deficit. Pain is not worsened by bearing down, positional changes or eye movement. He has been taking Celebrex, Advil and ASA at home with minimal relief. Patient experiences infrequent headaches, typically when he misses sleep or withdraws from caffeine. No additional complaints at this time. Patient has had tick exposure in his yard and has been treated with Doxycycline in the past. No known bites but his had a tick on her recently. LP performed in ER which revealed an elevated opening pressure of 40. Allergies Allergy/AdvReac Type Severity Reaction Status Date / Time No Known Allergies Allergy Unknown Verified 03/10/19 09:54 Home Medications Home Medications Medication Instructions Recorded Confirmed Type acetaminophen [Tylenol Extra 500 mg PO Q6H PRN 10/12/18 03/10/19 History Strength] aspirin 81 mg PO QAM 10/12/18 03/10/19 History celecoxib [Celebrex] 200 mg PO QAM 10/12/18 03/10/19 History gabapentin 300 mg PO QAM 10/12/18 03/10/19 History gabapentin 600 mg PO QPM 10/12/18 03/10/19 History indapamide 2.5 mg PO QAM 10/12/18 03/10/19 History levothyroxine 175 mcg PO QAM 10/12/18 03/10/19 History lisinopril 20 mg PO QAM 10/12/18 03/10/19 History metoprolol succinate 50 mg PO QAM 10/12/18 03/10/19 History multivitamin 1 tab PO QAM 10/12/18 03/10/19 History pantoprazole 40 mg PO QAM 10/12/18 03/10/19 History potassium chloride 20 meq PO QAM 10/12/18 03/10/19 History sildenafil 100 mg PO DAILY PRN 10/12/18 03/10/19 History fluconazole 200 mg PO WK 03/10/19 03/10/19 History Past Med/Surg History Medical History Barretts esophagus GERD (gastroesophageal reflux disease) Hypertension Hypothyroidism Surgical History History of abdominal surgery mesenteric artery repair History of adenoidectomy History of ankle fusion right History of endoscopic sinus surgery History of surgery right neck lymph node removal with radiation therapy (was benign) History of tooth extraction wisdom teeth Hx of vasectomy Status post total hip resurfacing left Social History Preferred Language: Amharic Communication Ability: Effective Beliefs That Will Affect Care: None Current Living Situation: Spouse Other Information That Helps Us Care for You: No Feels Safe at Home: Yes Safety Concerns: Feels Safe At This Time Smoking Status: Never smoker Second Hand Exposure: No Hx Alcohol Use: Yes Alcohol type: beer, wine and hard liquor Hx Substance Use: No Review of Systems Review of Systems: All systems reviewed & are unremarkable except as noted in HPI & below Patient also states he has been sweating profusely with activity over the last 4 days. NO exertional CP or SOB Physical Exam 2 Physical Exam: General: patient resting comfortably, NAD, non-toxic in appearance, AA&O x 4 Skin: warm, dry, intact, no rashes or lesions HEENT: NC/AT, PERRL, EOMI, anicteric sclera, conjunctiva without injection, external ear normal to inspection and nontender, nares patent, moist mucus membranes, dentition intact, no oropharyngeal lesions, neck supple, trachea midline, no LAD, no thyromegaly, no JVD Heart: +S1/S2, regular, no m/r/g Lungs: equal air entry bilaterally, no rales/rhonchi/wheezes Abd: +BS, soft, NT/ND, no masses/organomegaly/ascites Ext: warm, 2+ pulses in UE/LE bilaterally, no clubbing/cyanosis or edema Neuro: nonfocal, CN II-XII grossly intact, patient AA&O x 4, speech intact, no facial droop, moving all extremities on command with equal strength 5/5, no papilledema appreciated Results & Data Vital Signs (Past 12 Hours) Vital Signs Temp Pulse Pulse Resp BP BP Pulse Ox 03/10/19 12:55 85 20 158/100 H 96 03/10/19 12:23 96 03/10/19 12:20 86 L 03/10/19 12:15 97 H 20 135/86 95 03/10/19 11:00 90 20 139/95 97 03/10/19 09:24 36.7 C 100 H 18 147/94 H 97 Laboratory Results Lab Results 03/10/19 03/10/19 03/10/19 Range/Units 10:44 10:44 10:44 WBC 6.11 (4.8-10.8) K/uL RBC 5.38 (4.7-6.1) M/uL Hgb 16.1 (14.0-18.0) g/dL Hct 44.8 (42-52) % MCV 83.3 (80-100) fL MCH 29.9 (25-34) pg MCHC 35.9 (32-36) g/dL RDW Std Deviation 39.5 (36.4-46.3) fL RDW Coeff of Brent 13.2 (11.5-14.5) % Plt Count 134 (130-400) K/uL MPV 9.8 (7.4-10.4) fL Immature Gran % (Auto) 0.2 % Neut % (Auto) 77.9 % Lymph % (Auto) 14.2 % Tift % (Auto) 7.5 % Eos % (Auto) 0.2 % Baso % (Auto) 0.0 % Immature Gran # (Auto) 0.01 (0.00-0.02) K/uL Neut # (Auto) 4.76 (1.4-6.5) K/uL Lymph # (Auto) 0.87 L (1.2-3.4) K/uL Tift # (Auto) 0.46 (0.11-0.59) K/uL Eos # (Auto) 0.01 (0-0.5) K/uL Baso # (Auto) 0.00 (0-0.2) K/uL ESR 16 H (0-14) mm/hr Sodium (136-145) mmol/L Potassium (3.5-5.1) mmol/L Chloride (98-107) mmol/L Carbon Dioxide (21-32) mmol/L Anion Gap (3-11) BUN (7-18) mg/dl Creatinine (0.6-1.4) mg/dl Est Cr Clr Drug Dosing ml/min Est GFR ( Amer) Est GFR (Non-Af Amer) BUN/Creatinine Ratio (10-20) Glucose (70-99) mg/dl Calcium (8.5-10.1) mg/dl Phosphorus (2.5-4.9) mg/dl Magnesium (1.8-2.4) mg/dl Total Bilirubin (0.2-1) mg/dl AST (15-37) U/L ALT (12-78) U/L Alkaline Phosphatase (45-117) U/L Troponin I Total Protein (6.4-8.2) gm/dl Albumin (3.4-5.0) gm/dl Globulin (2.5-4.0) gm/dl Albumin/Globulin Ratio (0.9-2) CSF Appearance CSF Color Xanthrochromic CSF WBC (0-5) /uL CSF RBC (0-) /uL CSF Cell Count Tube # CSF Chemistry Tube # CSF Glucose (40-70) mg/dl CSF Total Protein (15-45) mg/dl Lyme Disease IgG Ab Negative (Negative) Lyme Disease IgM Ab Positive A (Negative) 03/10/19 03/10/19 03/10/19 Range/Units 10:44 10:49 10:49 WBC (4.8-10.8) K/uL RBC (4.7-6.1) M/uL Hgb (14.0-18.0) g/dL Hct (42-52) % MCV (80-100) fL MCH (25-34) pg MCHC (32-36) g/dL RDW Std Deviation (36.4-46.3) fL RDW Coeff of Brent (11.5-14.5) % Plt Count (130-400) K/uL MPV (7.4-10.4) fL Immature Gran % (Auto) % Neut % (Auto) % Lymph % (Auto) % Tift % (Auto) % Eos % (Auto) % Baso % (Auto) % Immature Gran # (Auto) (0.00-0.02) K/uL Neut # (Auto) (1.4-6.5) K/uL Lymph # (Auto) (1.2-3.4) K/uL Tift # (Auto) (0.11-0.59) K/uL Eos # (Auto) (0-0.5) K/uL Baso # (Auto) (0-0.2) K/uL ESR (0-14) mm/hr Sodium 137 (136-145) mmol/L Potassium 3.1 L (3.5-5.1) mmol/L Chloride 99 (98-107) mmol/L Carbon Dioxide 32 (21-32) mmol/L Anion Gap 7.0 (3-11) BUN 16 (7-18) mg/dl Creatinine 1.35 (0.6-1.4) mg/dl Est Cr Clr Drug Dosing 87.5 ml/min Est GFR ( Amer) 67.1 Est GFR (Non-Af Amer) 57.9 BUN/Creatinine Ratio 11.6 (10-20) Glucose 106 H (70-99) mg/dl Calcium 8.7 (8.5-10.1) mg/dl Phosphorus 2.6 (2.5-4.9) mg/dl Magnesium 2.3 (1.8-2.4) mg/dl Total Bilirubin 1.0 (0.2-1) mg/dl AST 56 H (15-37) U/L ALT 74 (12-78) U/L Alkaline Phosphatase 60 (45-117) U/L Troponin I Cancelled 0.077 H* Total Protein 7.4 (6.4-8.2) gm/dl Albumin 3.5 (3.4-5.0) gm/dl Globulin 3.9 (2.5-4.0) gm/dl Albumin/Globulin Ratio 0.9 (0.9-2) CSF Appearance CSF Color Xanthrochromic CSF WBC (0-5) /uL CSF RBC (0-) /uL CSF Cell Count Tube # CSF Chemistry Tube # CSF Glucose (40-70) mg/dl CSF Total Protein (15-45) mg/dl Lyme Disease IgG Ab (Negative) Lyme Disease IgM Ab (Negative) 03/10/19 03/10/19 Range/Units 11:50 11:50 WBC (4.8-10.8) K/uL RBC (4.7-6.1) M/uL Hgb (14.0-18.0) g/dL Hct (42-52) % MCV (80-100) fL MCH (25-34) pg MCHC (32-36) g/dL RDW Std Deviation (36.4-46.3) fL RDW Coeff of Brent (11.5-14.5) % Plt Count (130-400) K/uL MPV (7.4-10.4) fL Immature Gran % (Auto) % Neut % (Auto) % Lymph % (Auto) % Tift % (Auto) % Eos % (Auto) % Baso % (Auto) % Immature Gran # (Auto) (0.00-0.02) K/uL Neut # (Auto) (1.4-6.5) K/uL Lymph # (Auto) (1.2-3.4) K/uL Tift # (Auto) (0.11-0.59) K/uL Eos # (Auto) (0-0.5) K/uL Baso # (Auto) (0-0.2) K/uL ESR (0-14) mm/hr Sodium (136-145) mmol/L Potassium (3.5-5.1) mmol/L Chloride (98-107) mmol/L Carbon Dioxide (21-32) mmol/L Anion Gap (3-11) BUN (7-18) mg/dl Creatinine (0.6-1.4) mg/dl Est Cr Clr Drug Dosing ml/min Est GFR ( Amer) Est GFR (Non-Af Amer) BUN/Creatinine Ratio (10-20) Glucose (70-99) mg/dl Calcium (8.5-10.1) mg/dl Phosphorus (2.5-4.9) mg/dl Magnesium (1.8-2.4) mg/dl Total Bilirubin (0.2-1) mg/dl AST (15-37) U/L ALT (12-78) U/L Alkaline Phosphatase (45-117) U/L Troponin I Total Protein (6.4-8.2) gm/dl Albumin (3.4-5.0) gm/dl Globulin (2.5-4.0) gm/dl Albumin/Globulin Ratio (0.9-2) CSF Appearance Clear CSF Color Colorless Xanthrochromic No xanthochromia CSF WBC 0 (0-5) /uL CSF RBC 0 (0-) /uL CSF Cell Count Tube # 3 CSF Chemistry Tube # 1 CSF Glucose 66 (40-70) mg/dl CSF Total Protein 43.1 (15-45) mg/dl Lyme Disease IgG Ab (Negative) Lyme Disease IgM Ab (Negative) Diagnostic Findings MR venography head wo con CLINICAL HISTORY: 58 years-old Male presenting with insomnia for 3 days, headache. TECHNIQUE: MR venography of the head was performed without the use of intravenous contrast using 3-D [id number] technique. 3-D volumetric and/or maximum intensity projection (MIP) images were subsequently reconstructed for review. IV contrast: None. Stenosis measurements were based on NASCET-like criteria. COMPARISON: Noncontrast CT head from earlier today. FINDINGS: Localizer images: Unremarkable. Dural venous sinuses with preserved flow related enhancement within the superior sagittal sinus, straight sinus, confluence of the sinuses, right transverse sinus, and sigmoid sinus. 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 The inferior sagittal sinuses now well directed. Internal cerebral veins patent. Vein of Jules grossly patent. Cortical veins are not well-defined delineated on this exam. IMPRESSION: 1. 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 Electronically signed by: Candido Lopez M.D. 03/10/2019 3:59 PM Dictated: 03/10/19 1551 Transcribed: 03/10/[address] DOSE: 614.27 mGy.cm HISTORY: Headache TECHNIQUE: Multiaxial CT images of the head were performed without the use of intravenous contrast. Automated exposure control was utilized for this study. A dose lowering technique was utilized adhering to the principles of ALARA. Comparison: None. Findings: The paranasal sinuses and mastoid air cells are clear. The calvarium and skull base are intact. The ventricles and sulci are within normal limits. There is no mass, hematoma, midline shift, or acute infarct. Impression: No acute intracranial abnormality. Electronically signed by: Dandre Jain M.D. 03/10/2019 11:34 AM Dictated: 03/10/19 1120 Transcribed: 03/10/19 1120 ECG Additional Comments: NSR with PACs, no acute ischemic changes Code Status & VTE Plan Code Status FULL VTE Prophylaxis Plan VTE Prophylaxis will be ordered: Yes (1) Headache Headache chronicity pattern: unspecified pattern Headache type: unspecified Intractability: intractable Qualified Code(s): R51 - Headache (2) Hypertension Hypertension type: essential hypertension Qualified Code(s): I10 - Essential (primary) hypertension
[2019-03-10] MEDS ORDERED: PERFLUTREN LIPID MICROSPHERE (DEFINITY) IV ONE (13:33)
[2019-03-10] MEDS ORDERED: POTASSIUM CHLORIDE 20 MEQ TABCR PO ONE (15:30)
[2019-03-10 15:51] LABS: Magnesium 2.3 mg/dl (1.8-2.4); Phosphorus 2.6 mg/dl (2.5-4.9)
--- NOTE | 2019-03-10 16:00 | Magnetic Resonance Report ---
MR venography head wo con CLINICAL HISTORY: 58 years-old Male presenting with insomnia for 3 days, headache. TECHNIQUE: MR venography of the head was performed without the use of intravenous contrast using 3-D [id number] technique. 3-D volumetric and/or maximum intensity projection (MIP) images were subseq uently reconstructed for review. IV contrast: None. Stenosis measurements were based on NASCET-like c carloseria. COMPARISON: Noncontrast CT head from earlier today. FINDINGS: Localizer images: Unremarkable. Dural venous sinuses with preserved flow related enhancement within the superior sagittal sinus, stra ight sinus, confluence of the sinuses, right transverse sinus, and sigmoid sinus. 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 The inferior sagittal sinuses now well directed. Internal cerebral v eins patent. Vein of Jules grossly patent. Cortical veins are not well-defined delineated on this exa m. IMPRESSION: 1. 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 Electronically signed by: Candido Lopez M.D. 03/10/2019 3:59 PM
[2019-03-10] MEDS: TRAMADOL HCL 50 MG TABLET PO PRN (16:03)
[2019-03-10] MEDS: ACETAMINOPHEN 500 MG TAB PO PRN ×2 (16:05→23:30)
[2019-03-10] MEDS: GABAPENTIN 600 MG TAB PO SCH (21:43)
[2019-03-10] MEDS: DOXYCYCLINE HYCLATE 100 MG in DEXTROSE 5% 100 ML IV SCH (23:30)
[2019-03-11] MEDS: HYDROmorphone INJ 1 MG/ML SYRINGE IV PRN ×5 (01:42→22:29)
[2019-03-11 03:17] LABS: Basophils # (auto) 0.01 K/uL (0-0.2); Basophils % (auto) 0.1 %; Eosinophils # (auto) 0.01 K/uL (0-0.5); Eosinophils % (auto) 0.1 %; Hematocrit (blood only) 39.1 % (42-52); Hemoglobin 14.7 g/dL (14.0-18.0); Immature Granulocytes # (auto) 0.01 K/uL (0.00-0.02); Immature Granulocytes % (auto) 0.1 %; Lymphocytes # (auto) 1.24 K/uL (1.2-3.4); Lymphocytes % (auto) 14.2 %; Mean Corpuscular Hgb Conc 37.6 g/dL (32-36); Mean Corpuscular Volume 81.5 fL (80-100); Mean Platelet Volume 9.2 fL (7.4-10.4); Monocytes # (auto) 0.81 K/uL (0.11-0.59); Monocytes % (auto) 9.3 %; Neutrophils # (auto) 6.66 K/uL (1.4-6.5); Neutrophils % (auto) 76.2 %; Platelet Count 125 K/uL (130-400); RDW Coefficient of Variation 13.3 % (11.5-14.5); RDW Standard Deviation 39.9 fL (36.4-46.3); White Blood Count 8.74 K/uL (4.8-10.8)
[2019-03-11 03:34] LABS: BUN Creatinine Ratio 13.7 (10-20); Creatinine Clr Calc Pharmacy 97.7 ml/min; Est GFR (African American) 76.6; Est GFR (Non-African American) 66.1; Potassium 3.2 mmol/L (3.5-5.1)
[2019-03-11 03:51] LABS: Troponin I 0.113 ng/ml (0-0.045)
[2019-03-11] MEDS: ACETAMINOPHEN 500 MG TAB PO PRN ×2 (06:02→16:29)
[2019-03-11] MEDS: LEVOTHYROXINE SODIUM 175 MCG TABLET PO SCH (06:03)
[2019-03-11] MEDS ORDERED: SODIUM CHLORIDE 0.9% 1000ML 1,000 ML IV SCH ×2 (06:54→08:00)
[2019-03-11] MEDS ORDERED: ACETAMINOPHEN 500 MG TAB PO STA (06:55)
[2019-03-11] MEDS ORDERED: KETOROLAC TROMETHAMINE 15 MG/ML VIAL IV ONE (06:56)
[2019-03-11] MEDS ORDERED: KETOROLAC 30 MG/ML VIAL IV PRN (08:04)
[2019-03-11] MEDS ORDERED: CeleBREX 200 MG CAP PO SCH (09:00)
[2019-03-11] MEDS: ASPIRIN 81 MG ECTAB PO SCH (09:12)
[2019-03-11] MEDS: INDAPAMIDE 1.25 MG TAB PO SCH (09:12)
[2019-03-11] MEDS: GABAPENTIN 300 MG CAP PO SCH (09:13)
[2019-03-11] MEDS: METOPROLOL SUCC 50MG EXT REL TAB PO SCH (09:13)
[2019-03-11] MEDS: PANTOprazole 40 MG TAB PO SCH (09:13)
[2019-03-11] MEDS: LISINOPRIL 20 MG TAB PO SCH (09:14)
[2019-03-11] MEDS: TRAMADOL HCL 50 MG TABLET PO PRN (09:15)
[2019-03-11] MEDS: DOXYCYCLINE HYCLATE 100 MG in DEXTROSE 5% 100 ML IV SCH ×2 (09:16→20:54)
[2019-03-11] MEDS ORDERED: Nursing to Pharmacy Communication ONE (09:23)
--- NOTE | 2019-03-11 09:29 | Neurology Consultation ---
Date of Consultation March 11, 2019 Assessment & Plan (1) Elevated intracranial pressure: This patient presents with headache, fever, chills, and diaphoresis which began 5 days ago. He has an intact neurological examination, normal CT of the head, and unremarkable MRV of the brain. His neck is supple. He has no papilledema. He has no vision complaints. A lumbar puncture did reveal an elevated opening pressure but was otherwise completely normal. 0 cells, normal protein, and unremarkable Gram stain. There is no evidence for subarachnoid hemorrhage meningitis, encephalitis, or cerebral venous thrombosis. I do not think he has pseudotumor cerebri. The reason for the elevated CSF opening pressure is not entirely clear but probably relates to what appears to be a subacute systemic infectious process. Case discussed with Dr. Call. Patient may have Lyme disease or ehrlichiosis/anaplasmosis. Low platelet count and elevated AST noted. Positive Lyme IgM antibody noted. I would recommend obtaining a brain MRI with and without contrast to further exclude parenchymal disease. (Note that a contrast-enhanced MRI obtained after lumbar puncture may reveal nonspecific meningeal enhancement. However, as above, his lumbar puncture excludes meningitis or encephalitis at this time.) I will make further recommendations if necessary pending completion of this MRI. Otherwise, continue medical care. History of Present Illness Reason for Consultation: Increased CSF opening pressure Requesting Physician: Shelbi Cunningham DO Attending Physician: Ian Osuna History of Present Illness The patient is a 58-year-old male with a chief complaint of headache. He complains of a headache that began this past Friday prior to leaving for [place] from [place], with his son. The headache has been persistent and has gotten progressively worse since that time and has been interfering with sleep. He also complains of associated fevers and chills which began late Friday or Friday. He denies any associated neck pain or stiffness. While in [place], he has been taking ibuprofen periodically with only temporary relief. He denies experiencing any associated nausea, vomiting, or vision disturbance. He denies experiencing any significant myalgias or joint pain. He does not report a history of recent head or neck injury. No recent falls. He remembers feeling somewhat ill prior to leaving for [place] this past Friday but otherwise does not recall any other specific symptoms. He denies diarrhea, coughing, shortness of breath, or chest pain. 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 At that time, he recalls having headaches and diffuse spinal pain which persisted for about 3 days. He has not experienced a relapse of similar symptoms since that time. While in the emergency department the patient had a CT of the head completed which was unremarkable. A lumbar puncture was completed as well at that time, which revealed an opening pressure of 40 cm. CSF studies were unremarkable. 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 Currently, the patient continues to complain of a persistent mild to moderate headache, frontal location, throbbing quality, with some radiation from the occipital region, but not into the neck. He continues to complain of fevers and diaphoresis. Additional details as below. Family History non-contributory Allergies Allergy/AdvReac Type Severity Reaction Status Date / Time No Known Allergies Allergy Unknown Verified 03/10/19 09:54 Home Medications Home Medications Medication Instructions Recorded Confirmed Type acetaminophen [Tylenol Extra 500 mg PO Q6H PRN 10/12/18 03/10/19 History Strength] aspirin 81 mg PO QAM 10/12/18 03/10/19 History celecoxib [Celebrex] 200 mg PO QAM 10/12/18 03/10/19 History gabapentin 300 mg PO QAM 10/12/18 03/10/19 History gabapentin 600 mg PO QPM 10/12/18 03/10/19 History indapamide 2.5 mg PO QAM 10/12/18 03/10/19 History levothyroxine 175 mcg PO QAM 10/12/18 03/10/19 History lisinopril 20 mg PO QAM 10/12/18 03/10/19 History metoprolol succinate 50 mg PO QAM 10/12/18 03/10/19 History multivitamin 1 tab PO QAM 10/12/18 03/10/19 History pantoprazole 40 mg PO QAM 10/12/18 03/10/19 History potassium chloride 20 meq PO QAM 10/12/18 03/10/19 History sildenafil 100 mg PO DAILY PRN 10/12/18 03/10/19 History fluconazole 200 mg PO WK 03/10/19 03/10/19 History Patient History Medical History West Nile fever meningitis (Resolved) Barretts esophagus GERD (gastroesophageal reflux disease) Hypertension Hypothyroidism Surgical History History of abdominal surgery mesenteric artery repair History of adenoidectomy History of ankle fusion right History of endoscopic sinus surgery History of surgery right neck lymph node removal with radiation therapy (was benign) History of tooth extraction wisdom teeth Hx of vasectomy Status post total hip resurfacing left Social History Preferred Language: Latvian Communication Ability: Effective Beliefs That Will Affect Care: None Current Living Situation: Spouse Other Information That Helps Us Care for You: No Feels Safe at Home: Yes Safety Concerns: Feels Safe At This Time Smoking Status: Never smoker Second Hand Exposure: No Hx Alcohol Use: Yes Alcohol type: beer, wine and hard liquor Hx Substance Use: No Review of Systems Constitutional: + fever, + chills and + sweats Eyes: no blind spots, no diplopia, no eye pain and no photophobia Ear, Nose, Mouth, Throat: no ear pain, no tinnitus and no hearing loss Respiratory: no cough and no dyspnea Cardiovascular: no chest pain and no palpitations Gastrointestinal: no abdominal pain, no nausea and no vomiting Genitourinary: no dysuria and no urinary incontinence Musculoskeletal: no neck pain, no joint pain, no stiffness, no myalgia and no muscle weakness Integumentary: no rash, no lesions and no sores Neurologic: as per Subjective / HPI and + headache(s); no localized weakness, no generalized weakness, no lack of coordination, no abnormal movements, no seizure-like activity and no confusion Patient complains of chronic numbness and paresthesias affecting the feet 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 He is lying comfortably in bed. He is alert and fully oriented. Recent and remote memory intact. Attention and concentration normal. Patient exhibits a normal spontaneous speech pattern. He exhibits an age-appropriate fund of knowledge and normal comprehension of vocabulary. Visual rick full to confrontation. Visual acuity normal. Pupils equal round react to light and accommodation. Eye movements normal. No nystagmus. Facial sensation intact. There is no facial droop or weakness. Hearing intact bilaterally. Palate elevates to midline. Shoulder shrug intact. Tongue protrudes to midline. Sensation intact to all modalities in all 4 limbs. Deep tendon reflexes are intact and symmetrical for the arms and legs bilaterally. Plantar responses downgoing bilaterally. There is no dysdiadochokinesia or dysmetria [id number] or [id number] bilaterally. Ophthalmoscopic examination reveals normal-appearing optic disks and posterior segments. No papilledema or hemorrhages. Carotid pulses normal bilaterally, no bruits to auscultation. Gait and station normal. Patient exhibits normal muscle strength and tone for all 4 limbs. No atrophy. No abnormal movements observed. The neck is supple. Results & Data Vital Signs (Past 12 Hours) Vital Signs Temp Pulse Pulse Pulse Resp BP Pulse Ox 03/11/19 08:48 37.1 C 03/11/19 07:00 39.2 C H 102 H 18 142/90 H 92 03/11/19 06:34 39.5 C H 125 H 164/109 H 03/11/19 06:03 39.5 C H 03/11/19 03:45 37 C 91 H 18 114/69 96 03/11/19 00:35 98 H 03/11/19 00:28 37.2 C 03/10/19 23:14 39.5 C H 108 H 173/117 H 96 Laboratory Results Recent labs reviewed. WBC 8.74, hemoglobin 14.7, hematocrit 39.1, platelet cou nt 125, ESR 16, sodium 133, potassium 3.2, BUN 17, creatinine 1.21, glucose 127, calcium 8.0, magnesium 2.3, AST 56, ALT 74, troponins mildly elevated, Lyme Western blot pending. Lyme IgM antibody positive. Lumbar puncture results reviewed. CSF clear, colorless, no xanthochromia. CSF WBC 0, RBC 0, glucose 66, protein 43.1, CSF Gram stain no WBCs seen, no organisms seen Diagnostic Findings CT of the head completed yesterday. No acute intracranial abnormality. No hydrocephalus. No hemorrhage. No signs of acute infarct. I reviewed the imag es as well as the radiologist interpretation of this test. MRV of the head completed yesterday. Dural sinuses are patent with evidence of a congenitally diminutive left transverse sinus. Of note, the pars vascularity of the jugular marie on the left on the same day CT of the head was diminutive which supports the notion of a congenitally diminutive left transverse sinus. Sagittal sections of the brain were also completed. Per my review, no evidence of Chiari malformation, hydrocephalus, or obvious parenchymal abnormality. An electrocardiogram completed yesterday revealed a sinus rhythm with premature atrial complexes, 91 bpm An echocardiogram completed yesterday revealed mild concentric left ventricular hypertrophy with a mildly dilated left atrium.
[2019-03-11] MEDS ORDERED: KETOROLAC 30 MG/ML VIAL IV ONE (09:30)
[2019-03-11] MEDS: DOCUSATE SODIUM 100 MG CAP PO PRN (11:57)
[2019-03-11] MEDS ORDERED: POTASSIUM CHLORIDE 10 MEQ TABCR PO STA (14:52)
[2019-03-11] MEDS ORDERED: GADOBUTROL 65ML VIAL IV PRN (15:56)
--- NOTE | 2019-03-11 16:05 | Magnetic Resonance Report ---
MR brain wo/w con CLINICAL HISTORY: headache, elevated opening pressure, fever COMPARISON STUDY: No previous studies for comparison. TECHNIQUE: Utilizing a 1.5 Carla magnet and dedicated coil, multiplanar, multiecho imaging of the br ain was performed pre and postcontrast administration. IV administration of 7 mL of Gadavist contras t was uneventful. FINDINGS: Diffusion images are negative for an acute ischemic event. Signal characteristics the cerebellar as well as cerebral hemispheres are considered unremarkable. Th e ventricular system is midline. There is no evidence for abnormal postcontrast enhancement. There is perhaps a minimal component of chronic small vessel change considered age-appropriate. Several small foci of periventricular and deep white matter increased signal are present. IMPRESSION: 1. Minimal chronic small vessel change most likely consistent with age-appropriate chronic small vess el change.. 2. Otherwise negative study with no abnormal postcontrast enhancement. The above report was generated using voice recognition software. It may contain grammatical, syntax or spelling errors. Electronically signed by: Manuel River M.D. 03/11/2019 4:03 PM
[2019-03-11 17:06] LABS: Potassium 3.1 mmol/L (3.5-5.1)
[2019-03-11 17:34] LABS: Troponin I 0.126 ng/ml (0-0.045)
[2019-03-11] MEDS: POTASSIUM CHLORIDE 20 MEQ TABCR PO SCH ×2 (18:13→20:54)
[2019-03-11] MEDS: NSS + 20MEQ KCL 20 MEQ/1,000 ML BAG IV SCH (19:07)
--- NOTE | 2019-03-11 19:33 | Hospitalist Progress Note ---
Date of Service March 11, 2019 Assessment & Plan (1) Lyme disease: IgM is positive on Lyme's screen. Western Blot sent. Symptoms and clinical presentation could easily be consistent with early stage lyme's. Given his mild thrombocytopenia and mild elevation in LFTs other tick-borne illness (ehrlichia, etc) is also quite possible. Doxycycline BID will cover most tick-borne diseases -- continue such. Treat fever, headache, etc with tylenol, toradol prn, etc. Appreciate neuro consultation. If patient fails to improve consider sending babesiosis smears, viral titers for EBV, CMV etc, other work-up. (2) Headache: CT head negative. MRV head negative for thrombosis. MRI brain without abnormalities or encephalitis. LP done in ER with 0 WBCs and 0 RBCs; thus, no meningitis or encephalitis is present. Headache is part of his illness - likely tick-borne disease; cannot exclude viral etiologies (mono, CMV, parvo, etc). Obtained 2 sets of blood cx's to r/o bacteremia as well. He has no posterior cervical spine tenderness to suggest epidural abscess etc. (3) Elevated intracranial pressure: Opening pressure of 40 cm H20 on his LP by report. CT head and MRI brain both normal. Neuro exam normal. Cell counts normal from LP. (4) Elevated troponin: echo without wall motion abnormalities. No typical ischemic symptoms. Troponin elevation likely myocardial demand ischemia in setting of febrile illness. Continue ASA, Metoprolol, Lisinopril. Continue telemetry. (5) Hypokalemia: Chronic. Replace IV/PO. Check renin/lavonne levels in am. (6) Hypertension: Continue Lisinopril Continue Metoprolol (7) GERD with esophagitis: PPI (8) Hypothyroid: Chronic. TSH=0.865 in January 2019. Continue Synthroid. (9) Abnormal LFTs: In light of febrile illness tick-borne disease and viral processes would be the most likely etiology. Repeat LFTs in am. If any worsening, abd pain, nausea, etc - then RUQ u/s. (10) Thrombocytopenia: Like the abnormal LFTs the low platelets fits with a viral etiology vs tick-borne illness (ehrlichia etc) as cause. Blood cx's sent to r/o bacteremia. Repeat CBC in am. Subjective patient's headache is main complaint, followed by fever/chills/sweats. appetite is fair-poor. no myalgias. recently traveled to [place] - returned to [place] earlier this week. they were in urban areas; no rural area exposure or exposure to the desert. he and his family do not own farm animals. tele with NSR - a few 3-beat PVC runs only. denies cough. Review of Systems Constitutional: + fever, + chills, + sweats, + fatigue and + anorexia; no body aches Ear, Nose, Mouth, Throat: no nasal congestion and no sore throat Respiratory: no cough and no dyspnea Cardiovascular: no chest pain Gastrointestinal: no abdominal pain, no nausea and no vomiting Genitourinary: no dysuria Physical Exam 2 Constitutional: well developed and + ill appearing; no altered mental status ENMT: external ear and nose normal, oropharynx normal Neck: trachea midline, no thyromegaly supple, no meningismus Respiratory: normal respiratory effort, lungs clear to auscultation Cardiovascular: Rate/Rhythm: regular rate and regular rhythm Heart Sounds: normal S1 and normal S2; no murmur Vessels: normal peripheral pulses; no JVD Extremities: no edema Gastrointestinal (Abdomen): normal bowel sounds, soft, nontender, no hepatosplenomegaly Skin: no rashes, warm and dry Psychiatric: A+Ox3, euthymic affect Lymphatic: + cervical lymphadenopathy (b/l neck) Results & Data Vital Signs (Past 12 Hours) Vital Signs Temp Pulse Pulse Resp BP BP Pulse Ox 03/11/19 18:14 37.5 C 116/71 03/11/19 17:16 39.4 C H 98 H 156/102 H 92 03/11/19 16:21 37.5 C 100 H 24 98/54 L 92 03/11/19 11:00 37.1 C 71 16 138/80 97 03/11/19 08:48 37.1 C 03/11/19 08:00 117 H Laboratory Results Laboratory Results - last 24 hr 03/10/19 03/11/19 03/11/19 19:50 03:08 03:08 WBC 8.74 RBC 4.80 Hgb 14.7 Hct 39.1 L MCV 81.5 MCH 30.6 MCHC 37.6 H RDW Std Deviation 39.9 RDW Coeff of Brent 13.3 Plt Count 125 L MPV 9.2 Immature Gran % (Auto) 0.1 Neut % (Auto) 76.2 Lymph % (Auto) 14.2 Latimer % (Auto) 9.3 Eos % (Auto) 0.1 Baso % (Auto) 0.1 Immature Gran # (Auto) 0.01 Neut # (Auto) 6.66 H Lymph # (Auto) 1.24 Latimer # (Auto) 0.81 H Eos # (Auto) 0.01 Baso # (Auto) 0.01 Absolute Nucleated RBC 0.00 Nucleated RBC % (auto) 0.0 Peripher Smr Path Cons Sodium 133 L Potassium 3.2 L Chloride 96 L Carbon Dioxide 30 Anion Gap 7.0 BUN 17 Creatinine 1.21 Est Cr Clr Drug Dosing 97.7 Est GFR ( Amer) 76.6 Est GFR (Non-Af Amer) 66.1 BUN/Creatinine Ratio 13.7 Glucose 127 H Calcium 8.0 L Troponin I 0.089 H* 0.113 H* A. phagocytophilum DNA E. chaffeensis IgG Ab E. chaffeensis IgM Ab E. chaffeensis Interp E. chaffeensis Comment 03/11/19 03/11/19 10:16 16:43 WBC RBC Hgb Hct MCV MCH MCHC RDW Std Deviation RDW Coeff of Brent Plt Count MPV Immature Gran % (Auto) Neut % (Auto) Lymph % (Auto) Latimer % (Auto) Eos % (Auto) Baso % (Auto) Immature Gran # (Auto) Neut # (Auto) Lymph # (Auto) Latimer # (Auto) Eos # (Auto) Baso # (Auto) Absolute Nucleated RBC Nucleated RBC % (auto) Peripher Smr Path Cons Sodium Potassium 3.1 L Chloride Carbon Dioxide Anion Gap BUN Creatinine Est Cr Clr Drug Dosing Est GFR ( Amer) Est GFR (Non-Af Amer) BUN/Creatinine Ratio Glucose Calcium Troponin I 0.126 H* A. phagocytophilum DNA Pending E. chaffeensis IgG Ab Pending E. chaffeensis IgM Ab Pending E. chaffeensis Interp Pending E. chaffeensis Comment Pending (1) Headache Headache chronicity pattern: unspecified pattern Headache type: unspecified Intractability: intractable Qualified Code(s): R51 - Headache (2) Hypertension Hypertension type: essential hypertension Qualified Code(s): I10 - Essential (primary) hypertension (3) Hypothyroid Hypothyroidism type: acquired Qualified Code(s): E03.9 - Hypothyroidism, unspecified
[2019-03-11] MEDS: GABAPENTIN 600 MG TAB PO SCH (20:54)
[2019-03-12] MEDS: NSS + 20MEQ KCL 20 MEQ/1,000 ML BAG IV SCH ×2 (03:39→09:31)
[2019-03-12] MEDS: LEVOTHYROXINE SODIUM 175 MCG TABLET PO SCH (05:40)
[2019-03-12 07:01] LABS: Basophils # (auto) 0.02 K/uL (0-0.2); Basophils % (auto) 0.4 %; Eosinophils # (auto) 0.16 K/uL (0-0.5); Eosinophils % (auto) 3.5 %; Hematocrit (blood only) 39.8 % (42-52); Hemoglobin 13.9 g/dL (14.0-18.0); Immature Granulocytes # (auto) 0.01 K/uL (0.00-0.02); Immature Granulocytes % (auto) 0.2 %; Lymphocytes # (auto) 1.11 K/uL (1.2-3.4); Mean Corpuscular Hgb Conc 34.9 g/dL (32-36); Mean Platelet Volume 9.7 fL (7.4-10.4); Monocytes # (auto) 0.77 K/uL (0.11-0.59); Monocytes % (auto) 16.6 %; Neutrophils # (auto) 2.56 K/uL (1.4-6.5); Neutrophils % (auto) 55.3 %; Platelet Count 127 K/uL (130-400); RDW Coefficient of Variation 13.3 % (11.5-14.5); RDW Standard Deviation 41.2 fL (36.4-46.3); Red Blood Count 4.74 M/uL (4.7-6.1); White Blood Count 4.63 K/uL (4.8-10.8)
[2019-03-12 07:40] LABS: BUN Creatinine Ratio 20.4 (10-20); Calcium 8.7 mg/dl (8.5-10.1); Creatinine Clr Calc Pharmacy 108.4 ml/min; Est GFR (Non-African American) 73.3; Potassium 3.7 mmol/L (3.5-5.1)
[2019-03-12 07:43] LABS: Albumin Globulin Ratio 0.8 (0.9-2); Bilirubin,Total 1.2 mg/dl (0.2-1); Globulin 3.8 gm/dl (2.5-4.0); Total Protein 6.8 gm/dl (6.4-8.2); Troponin I 0.106 ng/ml (0-0.045)
[2019-03-12] MEDS: TRAMADOL HCL 50 MG TABLET PO PRN (08:46)
[2019-03-12] MEDS: DOXYCYCLINE HYCLATE 100 MG in DEXTROSE 5% 100 ML IV SCH (08:46)
[2019-03-12] MEDS: PANTOprazole 40 MG TAB PO SCH (08:48)
[2019-03-12] MEDS: GABAPENTIN 300 MG CAP PO SCH (08:48)
[2019-03-12] MEDS: METOPROLOL SUCC 50MG EXT REL TAB PO SCH (08:48)
[2019-03-12] MEDS: INDAPAMIDE 1.25 MG TAB PO SCH (08:49)
[2019-03-12] MEDS: ASPIRIN 81 MG ECTAB PO SCH (08:49)
[2019-03-12] MEDS: LISINOPRIL 20 MG TAB PO SCH (08:50)
[2019-03-12] MEDS: POTASSIUM CHLORIDE 20 MEQ TABCR PO SCH (08:50)
[2019-03-12] MEDS: DOCUSATE SODIUM 100 MG CAP PO PRN (09:31)
[2019-03-12] MEDS ORDERED: DOXYCYCLINE HYCLATE 100 MG CAP PO SCH (21:00)
[2019-03-13 04:26] LABS: 18KDIGG Band NONREACTIVE (NONREACTIVE); 23KDIGG Band NONREACTIVE (NONREACTIVE); 23KDIGM Band REACTIVE (NONREACTIVE); 28KDIGG Band NONREACTIVE (NONREACTIVE); 30KDIGG Band NONREACTIVE (NONREACTIVE); 39KDIGG Band NONREACTIVE (NONREACTIVE); 39KDIGM Band NONREACTIVE (NONREACTIVE); 41KDIGG Band REACTIVE (NONREACTIVE); 41KDIGM Band NONREACTIVE (NONREACTIVE); 45KDIGG Band NONREACTIVE (NONREACTIVE); 58KDIGG Band NONREACTIVE (NONREACTIVE); 66KDIGG Band NONREACTIVE (NONREACTIVE); 93KDIGG Band NONREACTIVE (NONREACTIVE); Lyme Antibodies, WB IgG NEGATIVE (NEGATIVE); Lyme Antibodies, WB IgM NEGATIVE (NEGATIVE)
[2019-03-13 08:11] LABS: Lyme IgG CSF NO BANDS DETECTED; Lyme IgM CSF NO BANDS DETECTED
[2019-03-16 03:44] LABS: Ehrlichia chaff IgG Ab <1:64 (<1:64); Ehrlichia chaff IgM Ab <1:20 (<1:20)
--- NOTE | 2019-03-21 21:00 | Discharge Summary ---
Date of Service date of admission - March 10, 2019 date of discharge - March 12, 2019 Admission HPI Per Admitting Provider Ulices Schuler is a 58yo C male with history of HTN, GERD, prior history of West Nile encephalitis presenting with 4 days of headache. Patient reports increased stress at work. Recently travelled to [place] with his son. He reports poor sleep x 2-3 days. HARDEN started on Friday AM, dull, persistent and severe, pain 8-9/10 involving posterior neck and bitemporal regions. Patient also has had subjective fevers, chills and sweats for the last 4 days. Denies nausea, visual changes, neurologic deficit. Pain is not worsened by bearing down, positional changes or eye movement. He has been taking Celebrex, Advil and ASA at home with minimal relief. Patient experiences infrequent headaches, typically when he misses sleep or withdraws from caffeine. No additional complaints at this time. Patient has had tick exposure in his yard and has been treated with Doxycycline in the past. No known bites but his had a tick on her recently. LP performed in ER which revealed an elevated opening pressure of 40. Principal Diagnosis febrile illness, suspected to be either tick-borne or viral in etiology Discharge Exam Constitutional well developed and well nourished; no acute distress and no altered mental status ENMT external ear and nose normal, oropharynx normal Neck trachea midline, no thyromegaly Respiratory normal respiratory effort, lungs clear to auscultation Cardiovascular Rate/Rhythm: regular rate and regular rhythm Heart Sounds: normal S1 and normal S2; no murmur Vessels: normal peripheral pulses; no JVD Extremities: no edema Gastrointestinal (Abdomen) normal bowel sounds, soft, nontender, no hepatosplenomegaly Skin left leg, medial aspect of distal klnie - bulls-eye type rash, about 3-4cm in diameter; no scale, no pruritis, no warmth Neurologic no focal motor deficits Psychiatric A+Ox3, euthymic affect Lymphatic + cervical lymphadenopathy (b/l neck) Discharge Data Allergies Allergy/AdvReac Type Severity Reaction Status Date / Time No Known Allergies Allergy Unknown Verified 03/10/19 09:54 Consultations neurology - Casey Bryant MD Procedures Performed lumbar puncture - elevated opening pressure but no WBCs, no RBCs, normal protein and glucose levels. CSF culture negative. Ordered Studies 1. CT head - no acute pathology. 2. MR venography head wo con - IMPRESSION: 1. 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 3. MRI brain - IMPRESSION: 1. Minimal chronic small vessel change most likely consistent with age- appropriate chronic small vessel change.. 2. Otherwise negative study with no abnormal postcontrast enhancement. 4. echocardiogram - * ef 55-60% * mild left atrial enlargement * normal valvular function Hospital Course (1) Lyme disease: IgM antibody was positive on initial Lyme's screen. Western Blot was sent. Symptoms and clinical presentation could easily have been consistent with early stage lyme's. He also developed a bulls-eye type rash on his left leg on day of discharge. Given his mild thrombocytopenia, mild leukopeia, and mild elevation in LFTs other tick-borne illness was also quite possible. He received Doxycycline BID while here and will complete in total 14 days of such to cover for most tick-borne diseases. Again Lyme's western blot, anaplasmosis, and ehrlichia testing were all pending at time of discharge. The patient's symptoms, fever, and headache all improved with doxycycline and time. CSF culture from the LP was negative. Blood cultures remained negative. MRI brain did not reveal any [employer] pathology. At discharge he will complete 12 more days of doxycycline. If the patient fails to improve consider sending babesiosis smears, viral titers for EBV & CMV, etc. (2) Headache: CT head negative. MRV head negative for thrombosis. MRI brain without abnormalities or encephalitis. LP done in ER with 0 WBCs and 0 RBCs; thus, no meningitis or encephalitis present. Suspect his headache was due to tick-borne disease; cannot exclude viral etiologies (mono, CMV, parvo, etc). Blood cultures remained negative while hospitalized. He had no posterior cervical spine tenderness to suggest epidural abscess etc. Headache improved by time of discharge. (3) Elevated intracranial pressure: Opening pressure of 40 cm H20 on his LP in the emergency room by report. CSF studies were all normal however. CT head and MRI brain both normal. Neuro exam normal. Significance of the opening pressure was uncertain given the otherwise normal CSF studies. (4) Elevated troponin: Echo without wall motion abnormalities. No typical ischemic symptoms. Peak troponin was 0.1. Troponin elevation likely myocardial demand ischemia in setting of febrile illness. Continue ASA, Metoprolol, Lisinopril. (5) Hypokalemia: Chronic. Replaced IV/PO. Checked renin/lavonne levels to exclude hyperaldosteronism. Results pending at discharge. At discharge advised doubling his potassium supplementation to 40meq qam. (6) Hypertension: Continue Lisinopril Continue Metoprolol (7) GERD with esophagitis: PPI (8) Hypothyroid: Chronic. TSH=0.865 in January 2019. Continue Synthroid. (9) Abnormal LFTs: In light of febrile illness tick-borne disease or viral process would be the most likely etiology. He will need repeat LFTs as outpatient to ensure stability. (10) Thrombocytopenia: Like the abnormal LFTs the low platelets fits with a viral etiology vs tick-borne illness (ehrlichia etc) as cause. Blood cx's sent to r/o bacteremia - these remained negative while hospitalized. Total Time Total Time Spent Total Time Spent (In Minutes): 45 Total Time Includes: Examination of the Patient, Discharge Planning and Medication Reconciliation Discharge Plan Discharge Items Patient Disposition: Home - Self-Care Reason For Visit: severe headache, fevers Discharge Diagnosis: suspected Lyme's Disease - improving Discharge Goals: Decrease discomfort, Diagnostic testing, Improve disease control, Learn about illness and Therapeutic intervention Activity: As commented below Activity Comment: for the next 3-4 days "take it easy"- no strenuous activities/heavy lifting Lifting: Gradually increase as tolerated Exercise/Sports: Gradually increase as tolerated Driving/Machine Use: Resume 1 day after discharge Non-emergency contact: Primary Care Provider Call non-emergency contact if: you have any medication questions, your symptoms worsen, your pain is not controlled, your pain is worsening and your temperature is above 101 Follow-up/Referrals: Delta Oconnor MD [Primary Care Provider] - (Please follow up with Dr. Oconnor. *A nurse will call you with the appointment information. If you have any questions, call his office at [phone].) Diet: Heart Healthy Other Ambulatory Orders: Complete Blood Count with Diff (Timed) Timeframe: 5 Days Location: Determined by Patient Ordered By: Ian Osuna Comprehensive Metabolic Panel (Routine) Timeframe: 5 Days Location: Determined by Patient Ordered By: Ian Osuna Addtl Provider Instructions: From Ian Osuna - Hospitalist- You were admitted due to severe headache, fever, chills and simply not feeling well. There was strong concern about tick-borne illness and your initial lyme's testing was positive. You underwent a spinal tap which did NOT show evidence of meningitis. Your MRI brain was normal and did NOT show evidence of encephalitis. Your spinal fluid culture and blood cultures have been negative while here. You improved with fluids, doxycycline antibiotics, and time. During the stay you developed what appeared to be the classic "bulls-eye" rash of Lyme's disease on your left leg. This rash may get larger over the next few days and then gradually go away. You do not need to do anything for the rash other than antibiotics. Your CBC showed a mildly low platelet count and white blood cell count. This is likely due to tick-borne disease. You should have a follow-up CBC in the next 4-5 days. You also had mildly elevated liver functions which can occur with tick-borne disease. You should also have follow-up "LFTs" in 4-5 days. I will have all tick-borne disease labs back in about 1 week and the renin/aldosterone levels as well. At this time we recommend - 1. 12 more days of doxycycline antibiotic, first dose TONIGHT. * doxycycline can cause reflux symptoms/heartburn * it can also cause a "photosensitivity" rash if you go out in the sun while taking the antibiotic; be sure to use sunscreen and cover up over the next 2 weeks 2. tramadol 50mg every 4-6 hours for severe headache. 3. INCREASE your potassium supplement to 40meq once a day; new prescription given. Other instructions - If you notice any worsening headache with going from sitting to standing position this could indicate a spinal headache from your recent lumbar puncture. If you develop these symptoms seek medical attention in the ER right away. Your fevers should be resolved or low-grade (100 or less) from this point forward. If you have fever spikes over 101 degrees over the next few days and you are feeling worse please seek medical attention. If you spend any time outdoors please have your perform a thorough tick check of your entire body later that day. Ticks particularly love locations behind the ears, armpits, groin, scalp, etc. Follow-up - 1. see Dr Oconnor within 1 week 2. have repeat blood work within 4-5 days (see slips) Return to [facility] if - * you have persistent, recurrent fevers over 101 degrees * you have concerns about spinal headache * any other concerns Prescriptions: New doxycycline hyclate 100 mg Capsule 100 mg PO BID 12 Days Qty: 24 RF: 0 tramadol 50 mg Tablet 50 mg PO Q4H PRN (Reason: pain) Qty: 15 RF: 0 Continued celecoxib [Celebrex] 200 mg Capsule 200 mg PO QAM RF: 0 multivitamin Tablet 1 tab PO QAM RF: 0 levothyroxine 175 mcg Tablet 175 mcg PO QAM RF: 0 indapamide 2.5 mg Tablet 2.5 mg PO QAM RF: 0 metoprolol succinate 50 mg Tablet Extended Release 24 Hr 50 mg PO QAM RF: 0 lisinopril 20 mg Tablet 20 mg PO QAM RF: 0 aspirin 81 mg Tablet,Delayed Release (Dr/Ec) 81 mg PO QAM RF: 0 acetaminophen [Tylenol Extra Strength] 500 mg Tablet 500 mg PO Q6H PRN (Reason: Pain) RF: 0 sildenafil 100 mg Tablet 100 mg PO DAILY PRN (Reason: Sexual Activity) RF: 0 pantoprazole 40 mg Tablet,Delayed Release (Dr/Ec) 40 mg PO QAM RF: 0 gabapentin 300 mg Capsule 300 mg PO QAM RF: 0 gabapentin 300 mg Capsule 600 mg PO QPM RF: 0 fluconazole 200 mg tablet 200 mg PO WK RF: 0 Changed potassium chloride 20 mEq Tablet Extended Release 40 meq PO QAM Qty: 60 RF: 5 Stand-Alone Forms: [facility] Discharge Orders: Discharge Order (Routine); Ordered 03/12/19 Ordered By: Ian Osuna Admission Data Admit Date/Time: 03/11/19 09:55 Attending Provider: Ian Osuna Admit Provider: Shelbi Cunningham Primary Care Provider: Delta Oconnor Other Providers: Shelbi Cunningham ; Casey Bryant ; Saman Dorsey III ; Sarah Mullen ; Fozia Kat ; Shahriar Hastings Service: Medical Other Interventions: Discharge Summary Assessment (RN) Last Done: 03/12/19 17:57 Pending Studies at Discharge: Yes Studies:: Anaplasmosis testing. Ehrlichia testing. Blood cultures. Renin and aldosterone levels (to see if a hormone issue is causing your low potassium). Spinal fluid culture but this will likely remain negative. DC Date/Time DO NOT enter until pt leaves facility: 03/12/19 18:39
== END 2019-03-12 18:39 | disposition home or self-care (01) | DRG 868 ==
LOC: ED 09:21 → 2W 09:21 → SUATTDRO 13:04 → 2W 14:03

== ENCOUNTER 2020-07-19 17:25 | Inpatient (IN) ==
[2020-07-19] MEDS ORDERED: ALBUTEROL HFA 8 GM INHALER INH ONE (18:12)
[2020-07-19] MEDS ORDERED: DEXAMETHASONE SOD INJ 10 MG/ML VIAL IV ONE (18:12)
[2020-07-19] MEDS ORDERED: AZITHROMYCIN 250 MG TAB PO ONE (18:12)
[2020-07-19 19:12] LABS: Eosinophils % (auto) 2.1 %; Hematocrit (blood only) 46.1 % (42-52); Hemoglobin 16.7 g/dL (14.0-18.0); Immature Granulocytes # (auto) 0.01 K/uL (0.00-0.02); Immature Granulocytes % (auto) 0.2 %; Lymphocytes # (auto) 1.24 K/uL (1.2-3.4); Lymphocytes % (auto) 26.2 %; Mean Corpuscular Hemoglobin 30.5 pg (25-34); Mean Corpuscular Hgb Conc 36.2 g/dL (32-36); Mean Corpuscular Volume 84.1 fL (80-100); Mean Platelet Volume 10.7 fL (7.4-10.4); Monocytes # (auto) 0.54 K/uL (0.11-0.59); Monocytes % (auto) 11.4 %; Neutrophils # (auto) 2.85 K/uL (1.4-6.5); Neutrophils % (auto) 60.1 %; Platelet Count 150 K/uL (130-400); RDW Coefficient of Variation 12.9 % (11.5-14.5); RDW Standard Deviation 39.4 fL (36.4-46.3); Red Blood Count 5.48 M/uL (4.7-6.1); White Blood Count 4.74 K/uL (4.8-10.8)
--- NOTE | 2020-07-19 19:38 | XRay Report ---
XR chest 1V portable CLINICAL HISTORY: Shortness of breath. COMPARISON STUDY: Chest radiograph January 20, 2019. FINDINGS: Lung volumes are at the lower limits of normal. Moderate cardiomegaly is noted. There is pu lmonary vascular congestion. No consolidation is identified. There is no pneumothorax or pleural effu chato. IMPRESSION: Cardiomegaly with pulmonary vascular congestion. ACT 112: Negative or not required by law. Electronically signed by: Panda Mora M.D. 07/19/2020 7:36 PM
[2020-07-19 20:00] LABS: Albumin Level 3.6 gm/dl (3.4-5.0); Bilirubin,Total 0.6 mg/dl (0.2-1); Calcium 8.8 mg/dl (8.5-10.1); Creatine Kinase MB 1.8 ng/ml (0.5-3.6); Creatinine Clr Calc Pharmacy 109.9 ml/min; Est GFR (African American) 88.2; Est GFR (Non-African American) 76.1
[2020-07-19 20:01] LABS: C Reactive Protein 0.75 mg/dl (0-0.29); Ferritin 145.3 ng/ml (8-388); Globulin 3.5 gm/dl (2.5-4.0); Potassium 3.2 mmol/L (3.5-5.1); Total Protein 7.1 gm/dl (6.4-8.2); Troponin I 0.08 ng/ml (0-0.045)
[2020-07-19] MEDS ORDERED: POTASSIUM CHLORIDE 20 MEQ TABCR PO STA (20:06)
--- NOTE | 2020-07-19 20:06 | Emergency Department Note ---
History of Present Illness General Chief complaint: Shortness of Breath/Dyspnea Stated complaint: DYSPNEA, COUGH Time Seen by Provider: 07/19/20 17:50 Source: patient, RN notes reviewed and old records reviewed Mode of arrival: ambulatory Limitations: no limitations History of Present Illness Provider complaint: SOB Onset (ago): week(s) 1 Location: chest Radiation: non-radiation Severity: mild Current Pain Intensity: 0 Relieved By: + rest Exacerbated By: + movement Associated symptoms: + cough; no chest pain and no fever/chills Treatments prior to arrival: none This is a 59-year-old male who tested positive for COVID approximately 1 week ago. Since that time the patient reports he had been doing well however started feeling short of breath. He reports anytime he moves to become short of breath. He reports rest makes it better. He has not started any medications. Home Medications Home Medications Medication Instructions Recorded Confirmed Type aspirin 81 mg PO QAM 10/12/18 07/19/20 History multivitamin 1 tab PO QAM 10/12/18 07/19/20 History sildenafil 100 mg tablet 100 mg PO DAILY PRN #30 tab 05/26/20 07/19/20 Rx celecoxib 200 mg capsule 200 mg PO QAM #90 cap 06/12/20 07/19/20 Rx indapamide 2.5 mg tablet 2.5 mg PO QAM #90 tab 06/12/20 07/19/20 Rx levothyroxine 175 mcg tablet 175 mcg PO QAM #90 tab 06/12/20 07/19/20 Rx metoprolol succinate 50 mg 50 mg PO QAM #90 tab 06/12/20 07/19/20 Rx tablet,extended release 24 hr pantoprazole 40 mg tablet,delayed 40 mg PO QAM #90 tab 06/12/20 07/19/20 Rx release potassium chloride 20 mEq 40 meq PO QAM #180 tab 06/12/20 07/19/20 Rx tablet,extended release lisinopril 20 mg tablet 20 mg PO QAM #30 tab 07/03/20 07/19/20 Rx acetaminophen [Tylenol] 650 mg PO TID PRN 07/19/20 07/19/20 History gabapentin 300 mg PO QAM 07/19/20 07/19/20 History gabapentin 600 mg PO QPM 07/19/20 07/19/20 History azithromycin [Zithromax] 250 mg PO DAILY 4 Days #4 tab 07/20/20 Rx codeine-guaifenesin 10 ml PO Q6H PRN 10 Days #120 ml 07/20/20 Rx dexamethasone 6 mg PO DAILY 8 Days #24 tab 07/20/20 Rx zinc sulfate 110 mg PO BID #14 tab 07/20/20 Rx Allergies Allergy/AdvReac Type Severity Reaction Status Date / Time No Known Allergies Allergy Unknown Verified 07/19/20 21:51 Past Med/Surg History Medical History (Updated 07/21/20 @ 01:28 by Iron Rayo MD) Barretts esophagus GERD (gastroesophageal reflux disease) Hypertension Hypothyroidism West Nile fever meningitis Surgical History History of abdominal surgery mesenteric artery repair History of adenoidectomy History of ankle fusion right History of endoscopic sinus surgery History of surgery right neck lymph node removal with radiation therapy (was benign) History of tooth extraction wisdom teeth Hx of vasectomy Status post total hip resurfacing left Social History Smoking Status: Never smoker Second Hand Exposure: No; Hx Alcohol Use: Yes Alcohol type: beer, wine and hard liquor Hx Substance Use: No Preferred Language: Cam[place]onian Communication Ability: Effective Starch Crab Required: No Beliefs That Will Affect Care: None Current Living Situation: Spouse Feels Safe at Home: Yes Assistive Devices: Glasses Review of Systems A total of 10 systems reviewed and were otherwise negative Physical Exam Vital Signs Vital Signs - 24 hr 07/19/20 17:43 07/19/20 19:05 07/19/20 20:20 Temperature 36.9 C Temperature Source Oral Pulse Rate 79 Pulse Rate [Left Finger] 92 H 85 Respiratory Rate 20 22 20 Respiratory Effort / Characteristics Non-Labored Respiratory Depth Normal Blood Pressure 160/101 H Blood Pressure [Left Arm] 152/98 H 157/76 H Blood Pressure Mean 120 Blood Pressure Mean [Left Arm] 116 103 Pulse Oximetry 96 92 95 Oxygen Delivery Method Room Air Sepsis Recent Fever Within 48 Hours No Sepsis New/Unexplained Change in Mental Status N/A Sepsis Action Taken by Nursing No Action Required VITAL SIGNS - Vital signs and nursing notes were reviewed. GENERAL - 59-year-old male appearing stated age who is in no acute distress. Communicates well with provider and answers questions appropriately. SKIN - Without rashes. HEAD - NC/AT. EYES - PERRL with EOMI bilaterally. Sclera anicteric. Palpebral conjunctiva pink and moist with no injection noted. EARS - No deformities of external structures noted on gross examination bilaterally. No pain elicited with palpation of the tragus bilaterally. External auditory canals without discharge or otorrhea. Tympanic membranes pearly berrios without retraction or bulging. No fluid or purulent material visualized behind the TM. Handle of malleus, umbo, cone of light, pars tensa/flaccid all easily visualized. NOSE - Midline and without cyanosis. No epistaxis or purulent drainage noted. Septum midline without deviation or septal hematoma noted. MOUTH/OROPHARYNX - Without perioral cyanosis. Buccal mucosa pink and moist and without leukoplakia. Tongue midline with equal elevation of palate bilaterally. No tonsillar hypertrophy, erythema, or exudates noted. dentition noted. NECK - Neck with FROM. Supple to palpation. lymphadenopathy noted. No nuchal rigidity. LUNGS - Chest wall symmetric without accessory muscle use, intercostals retractions, or central cyanosis. Normal vesicular breath sounds CTA B/L. No wheezes, rales, or rhonchi appreciated. CARDIAC - RRR with S1/S2. No murmur, rubs, or gallops appreciated. ABDOMEN - Abdominal contour without pulsations or visible masses. BS normoactive all four quadrants. No tenderness, palpable masses, hepatosplen omegaly, or ascites noted. EXTREMITIES - No clubbing or peripheral cyanosis. No pretibial edema present. +3/5 radial, posterior tibial, and dorsalis pedis pulses palpated throughout. +5/5 strength noted in UE/LE bilaterally. NEUROLOGIC - Cranial nerves II through XII grossly intact. Sensory intact to light touch throughout. Patellar reflexes +2/4. PSYCH - A&Ox3 and cooperates fully with examiner. Pt is very pleasant and interacts well with examiner. Course Administered Medications Discontinued Medications Albuterol (Albuterol Hfa 8 Gm Inhaler) 2 puffs INH NOW ONE Stop: 07/19/20 18:13 Last Admin: 07/19/20 19:11 Dose: 2 puffs Documented by: [id number] Albuterol (Albuterol Hfa 8 Gm Inhaler) 2 puffs INH QID PRN PRN Reason: Dyspnea Stop: 08/18/20 23:33 Last Admin: 07/20/20 01:12 Dose: 2 puffs Documented by: [id number] Aspirin (Aspirin 81 Mg Ectab) 81 mg PO QAM [facility] Stop: 08/19/20 08:59 Last Admin: 07/20/20 08:43 Dose: 81 mg Documented by: [id number] Azithromycin (Azithromycin 250 Mg Tab) 500 mg PO NOW ONE Stop: 07/19/20 18:13 Last Admin: 07/19/20 19:11 Dose: 500 mg Documented by: [id number] Dexamethasone (Dexamethasone Sod Inj 10 Mg/Ml Vial) 10 mg IV NOW ONE Stop: 07/19/20 18:13 Last Admin: 07/19/20 19:13 Dose: 10 mg Documented by: [id number] Gabapentin (Gabapentin 300 Mg Cap) 300 mg PO QAM [facility] Stop: 08/19/20 08:59 Last Admin: 07/20/20 08:43 Dose: 300 mg Documented by: [id number] Gabapentin (Gabapentin 300 Mg Cap) 600 mg PO QPM [facility] Stop: 08/19/20 20:59 Last Admin: 07/20/20 00:42 Dose: 600 mg Documented by: [id number] Guaifenesin (Guaifenesin 600 Mg Tabcr) 600 mg PO Q12 [facility] Stop: 08/19/20 08:59 Last Admin: 07/20/20 08:43 Dose: 600 mg Documented by: [id number] Ceftriaxone Sodium 2,000 mg/ (Dextrose) 70 mls @ 100 mls/hr IV Q24H [facility]; Protocol Stop: 07/27/20 00:00 Last Infusion: 07/20/20 01:52 Dose: 0 mls/hr Documented by: [id number] Admin: 07/20/20 00:42 Dose: 100 mls/hr Documented by: [id number] Tuberculin PPD 5 tu/ Syringe 0.1 mls @ 0.033 mls/min ID TODAY@0000 [facility] Stop: 07/20/20 00:04 Last Admin: 07/20/20 01:11 Dose: 0.033 mls/min Documented by: [id number] Dexamethasone Sodium Phosphate (6 mg/ Syringe) 1.5 mls @ 1 mls/min IV Q12H [facility] Stop: 08/19/20 07:59 Last Admin: 07/20/20 08:46 Dose: 1 mls/min Documented by: [id number] Vancomycin HCl 2,750 mg/ (Sodium Chloride) 555 mls @ 200 mls/hr IV ONE ONE Stop: 07/20/20 05:16 Last Infusion: 07/20/20 06:45 Dose: 0 mls/hr Documented by: [id number] Admin: 07/20/20 03:37 Dose: 200 mls/hr Documented by: [id number] Vancomycin HCl 1,250 mg/ (Sodium Chloride) 275 mls @ 125 mls/hr IV Q8H [facility] Stop: 07/27/20 11:59 Last Admin: 07/20/20 15:10 Dose: Not Given Documented by: [id number] Ioversol (Optiray 320 125ml) 119 ml IV ONCE ONE Stop: 07/19/20 21:33 Last Admin: 07/19/20 21:32 Dose: 119 ml Documented by: [id number] Levothyroxine Sodium (Levothyroxine Sodium 175 Mcg Tablet) [facility] Stop: 08/19/20 06:29 Last Admin: 07/20/20 06:30 Dose: 175 mcg Documented by: [id number] Metoprolol Succinate (Metoprolol Succ 50mg Ext Rel Tab) 50 mg PO [facility] Stop: 08/19/20 08:59 Last Admin: 07/20/20 08:43 Dose: 50 mg Documented by: [id number] [facility]ivitamins ([facility]ivitamin Tab) [facility] [place] [facility] [place]: 08/19/20 08:59 Last Admin: 07/20/20 08:43 Dose: 1 tab Documented by: [id number] Pantoprazole Sodium (Pantoprazole 40 Mg Tab) 40 mg PO [facility] Stop: 08/19/20 08:59 Last Admin: 07/20/20 08:43 Dose: 40 mg Documented by: [id number] Potassium Chloride (Potassium Chloride 20 Meq Tabcr) 40 meq PO NOW [facility] Stop: 07/19/20 20:07 Last Admin: 07/19/20 22:12 Dose: 40 meq Documented by: [id number] Potassium Chloride (Potassium Chloride 20 Meq Tabcr) 40 [place] [place] [facility] [place]: 08/19/20 08:59 Last Admin: 07/20/20 09:40 Dose: 40 meq Documented by: [id number] Medical Decision Making Differential Diagnosis Reactive airway disease, pneumonia, pneumothorax, COPD, CHF, infections, cardiac ischemia, pulmonary embolism, musculoskeletal, gastrointestinal, as well as o ther pathologies. Medical Records Attestation: I reviewed the patient's medical records. Home Medications Current Medication List: was personally reviewed by me Laboratory Data Attestation: I reviewed the patient's lab results. Result diagrams: 07/20/20 07:25 07/20/20 07:25 Lab Results 07/19/20 07/19/20 07/19/20 Range/Units 18:44 18:44 18:44 WBC (4.8-10.8) K/uL RBC (4.7-6.1) M/uL Hgb (14.0-18.0) g/dL Hct (42-52) % MCV (80-100) fL MCH (25-34) pg MCHC (32-36) g/dL RDW Std Deviation (36.4-46.3) fL RDW Coeff of Brent (11.5-14.5) % Plt Count (130-400) K/uL MPV (7.4-10.4) fL Immature Gran % (Auto) % Neut % (Auto) % Lymph % (Auto) % [place] % (Auto) % Eos % (Auto) % Baso % (Auto) % Neut # (Auto) (1.4-6.5) K/uL Lymph # (Auto) (1.2-3.4) K/uL [place] # (Auto) (0.11-0.59) K/uL Eos # (Auto) (0-0.5) K/uL Baso # (Auto) (0-0.2) K/uL Immature Gran # (Auto) (0.00-0.02) K/uL ESR 6 (0-14) mm/hr D-Dimer (0-500) ug/L FEU Sodium 140 (136-145) mmol/L Potassium 3.2 L (3.5-5.1) mmol/L Chloride 99 (98-107) mmol/L Carbon Dioxide 32 (21-32) mmol/L Anion Gap 9.0 (3-11) BUN 20 H (7-18) mg/dl Creatinine 1.07 (0.6-1.4) mg/dl Est Cr Clr Drug Dosing 109.9 ml/min Est GFR ( Amer) 88.2 Est GFR (Non-Af Amer) 76.1 BUN/Creatinine Ratio 19.0 (10-20) Glucose 97 (70-99) mg/dl Lactate 0.5 (0.4-2.0) mmol/L Calcium 8.8 (8.5-10.1) mg/dl Ferritin 145.3 (8-388) ng/ml Total Bilirubin 0.6 (0.2-1) mg/dl AST 79 H (15-37) U/L ALT 99 H (12-78) U/L Alkaline Phosphatase 72 (45-117) U/L Total Creatine Kinase 184 (39-308) U/L CK-MB (CK-2) 1.8 (0.5-3.6) ng/ml CK/CKMB % Calc 1.0 (0-3.0) Troponin I 0.080 H* (0-0.045) ng/ml C-Reactive Protein 0.75 H (0-0.29) mg/dl NT-Pro-B Natriuret Pep 43 (0-900) pg/ml Total Protein 7.1 (6.4-8.2) gm/dl Albumin 3.6 (3.4-5.0) gm/dl Globulin 3.5 (2.5-4.0) gm/dl Albumin/Globulin Ratio 1.0 (0.9-2) Procalcitonin (0-0.5) ng/ml 07/19/20 07/19/20 07/19/20 Range/Units 18:44 18:44 18:44 WBC 4.74 L (4.8-10.8) K/uL RBC 5.48 (4.7-6.1) M/uL Hgb 16.7 (14.0-18.0) g/dL Hct 46.1 (42-52) % MCV 84.1 (80-100) fL MCH 30.5 (25-34) pg MCHC 36.2 H (32-36) g/dL RDW Std Deviation 39.4 (36.4-46.3) fL RDW Coeff of Brent 12.9 (11.5-14.5) % Plt Count 150 (130-400) K/uL MPV 10.7 H (7.4-10.4) fL Immature Gran % (Auto) 0.2 % Neut % (Auto) 60.1 % Lymph % (Auto) 26.2 % [place] % (Auto) 11.4 % Eos % (Auto) 2.1 % Baso % (Auto) 0.0 % Neut # (Auto) 2.85 (1.4-6.5) K/uL Lymph # (Auto) 1.24 (1.2-3.4) K/uL [place] # (Auto) 0.54 (0.11-0.59) K/uL Eos # (Auto) 0.10 (0-0.5) K/uL Baso # (Auto) 0.00 (0-0.2) K/uL Immature Gran # (Auto) 0.01 (0.00-0.02) K/uL ESR (0-14) mm/hr D-Dimer 580 H* (0-500) ug/L FEU Sodium (136-145) mmol/L Potassium (3.5-5.1) mmol/L Chloride (98-107) mmol/L Carbon Dioxide (21-32) mmol/L Anion Gap (3-11) BUN (7-18) mg/dl Creatinine (0.6-1.4) mg/dl Est Cr Clr Drug Dosing ml/min Est GFR ( Amer) Est GFR (Non-Af Amer) BUN/Creatinine Ratio (10-20) Glucose (70-99) mg/dl Lactate (0.4-2.0) mmol/L Calcium (8.5-10.1) mg/dl Ferritin (8-388) ng/ml Total Bilirubin (0.2-1) mg/dl AST (15-37) U/L ALT (12-78) U/L Alkaline Phosphatase (45-117) U/L Total Creatine Kinase (39-308) U/L CK-MB (CK-2) (0.5-3.6) ng/ml CK/CKMB % Calc (0-3.0) Troponin I (0-0.045) ng/ml C-Reactive Protein (0-0.29) mg/dl NT-Pro-B Natriuret Pep (0-900) pg/ml Total Protein (6.4-8.2) gm/dl Albumin (3.4-5.0) gm/dl Globulin (2.5-4.0) gm/dl Albumin/Globulin Ratio (0.9-2) Procalcitonin < 0.05 (0-0.5) ng/ml Imaging Data Radiologist's Impression: [place], [place] [phone] XRay Report Patient: ELA CEBALLOS Admit Date: 07/19/20 MR#: [id number] Address[address]: [address] Acct ID:[id number] Address2: Date: 1960 [facility] Zip: [place] [address] Age: 59 Location: ED Sex: M Room/Bed: Att Phy: Diagnosis: DYSPNEA, COUGH Maribell Phy: Ian Oconnor MD Service Date: 07/19/20 Fam Phy: Interpreting Phy: Panda Mora MD Admit Phy: Ordering Phy: Iron Rayo MD cc: ~ XR chest 1V portable CLINICAL HISTORY: Shortness of breath. COMPARISON STUDY: Chest radiograph January 20, 2019. FINDINGS: Lung volumes are at the lower limits of normal. Moderate cardiomegaly is noted. There is pulmonary vascular congestion. No consolidation is id entified. There is no pneumothorax or pleural effusion. IMPRESSION: Cardiomegaly with pulmonary vascular congestion. ACT 112: Negative or not required by law. Electronically signed by: Panda Mora M.D. 07/19/2020 7:36 PM Dictated: 07/19/201934 Transcribed: 07/19/201934 CTA chest: Mild patchy bilateral groundglass infiltrates concerning for pneumonia to include viral pneumonia such as COVID-19. No pleural effusion or pneumothorax. No acute pulmonary embolism. No thoracic aortic aneurysm. Normal heart size. Coronary artery arthrosclerosis. No pericardial effusion. No acute osseous findings. ECG Data Attestation: I personally reviewed and interpreted this ECG as follows: Indication: + SOB/dyspnea Rate (beats per minute): 71 Rhythm: + sinus rhythm ECG [place]: + Normal ECG ST segments: no ST depression and no ST elevation ECG Findings: + PACs and + PVCs Comparison ECG Date: from (03/10/2019) Change: the following changes noted (PVCs noted) MDM Narrative Patient was seen and evaluated as above in room A4. Review was performed of nursing notes and vital signs. I did review pertinent previous visits and patie nt history. After obtaining a thorough history and physical examination the above work up was performed. This is a 59-year-old male who presents emergency department complaining of shortness of breath. Patient has an elevation in his troponin. He is positive for COVID. He was started on Decadron here in the emergency department given an albuterol inhaler. I did discuss the case with the hospitalist service who did agree to meet the patient. Patient is in agreement with the treatment plan. An order was placed for continuous cardiac monitoring. The monitor shows a rate of 73 with Normal SInus rhythm. The patient was evaluated during the global COVID-19 pandemic, and that diagnosi s was suspected/considered upon their initial presentation. Their evaluation, treatment and testing was consistent with current guidelines for patients who present with complaints or symptoms that may be related to COVID-19. Impression & Plan Pneumonia due to COVID-19 virus, Elevated troponin Discharge Plan Visit Data Chief Complaint: Shortness of Breath/Dyspnea Stated Complaint: DYSPNEA, COUGH ED Provider: Iron Rayo Discharge Problem: Pneumonia due to COVID-19 virus, Elevated troponin Patient Disposition: Admitted As Inpatient Condition: Good Discharge Instructions Interventions: ED Discharge Assessment Last Done: 07/19/20 22:55
[2020-07-19 20:25] LABS: D Dimer 580 ug/L FEU (0-500)
--- NOTE | 2020-07-19 21:15 | History & Physical Report ---
Date of Service July 19, 2020 Assessment & Plan (1) Pneumonia due to COVID-19 virus: Given Decadron 10 mg IV in the ED and azithromycin 500 mg IV. Admit on Decadron 6 mg IV every 12 hours, vancomycin IV, ceftriaxone 2 g IV daily, and azithromycin 100 mg IV daily. Ventolin HFA 2 puffs 4 times daily as needed Guaifenesin extended release 600 mg p.o. twice daily Admit to respiratory isolation/negative pressure room. Nasal cannula oxygen, titrate to keep pulse ox 95%. Presently on 2 L in the ED Consult pulmonology Present on Admission?: Yes (2) Non-STEMI (non-ST elevated myocardial infarction): Non-STEMI/hypertension- Troponin 0.08 upon admission. The patient will be admitted to telemetry for serial cardiac enzymes, serial EKG's, cardiac rhythm monitoring and a 2-D echocardiogram with Dopplers. Likely type II MO, supply demand mismatch. Continue aspirin 81 mg daily, lisinopril 20 mg daily, metoprolol succinate ER 50 mg daily and potassium chloride 40 mEq daily. Consult cardiology Present on Admission?: Yes (3) Hypothyroid: Continue levothyroxine sodium 125 mcg daily Present on Admission?: Yes (4) Hypertension: See above Present on Admission?: Yes (5) Hypokalemia due to excessive renal loss of potassium: For now, hold indapamide and increase potassium supplementation. Recheck laboratories, BMP and magnesium level in a.m. Present on Admission?: Yes (6) GERD with esophagitis: GERD with esophagitis/Norton's esophagus- Continue pantoprazole 40 mg daily Present on Admission?: Yes (7) Norton's esophagus: See above Present on Admission?: Yes History of Present Illness Chief Complaint: The patient presents to the emergency department due to shortness of breath and dyspnea on exertion. Primary Care Provider: Ian Oconnor MD The patient is a 59-year-old male with a past medical history including GERD with esophagitis, hypothyroidism, hypertension, Lyme disease, West Nile fever meningitis, Norton's esophagus and cellulitis. He reports being diagnosed with COVID-19 on 07/10/2020 and had been practicing home quarantining. He was attempting exercise over the past few days, and became atypically short of breath, and presents to the ED for assessment. In the emergency department, work-up included laboratories with potassium 3.2, ALT 99, troponin 0 0.08. Chest x-ray showed cardiomegaly and signs of pulmonary venous congestion. The patient was placed on Decadron 10 mg IV, azithromycin 5 mg IV, potassium chloride 40 mEq and Ventolin HFA by the ED, and was referred for evaluation for admission. Upon questioning, patient does report a mildly congested cough that is nonproductive. He also reports upon questioning the recent development of loose stools. Of note, patient's 22-year-old son was initially diagnosed with COVID-19 about 14 days ago, and his was diagnosed at about the same time as the patient. Allergies Allergy/AdvReac Type Severity Reaction Status Date / Time No Known Allergies Allergy Unknown Verified 07/19/20 21:51 Home Medications Home Medications Medication Instructions Recorded Confirmed Type aspirin 81 mg PO QAM 10/12/18 07/19/20 History multivitamin 1 tab PO QAM 10/12/18 07/19/20 History sildenafil 100 mg tablet 100 mg PO DAILY PRN #30 tab 05/26/20 07/19/20 Rx celecoxib 200 mg capsule 200 mg PO QAM #90 cap 06/12/20 07/19/20 Rx indapamide 2.5 mg tablet 2.5 mg PO QAM #90 tab 06/12/20 07/19/20 Rx levothyroxine 175 mcg tablet 175 mcg PO QAM #90 tab 06/12/20 07/19/20 Rx metoprolol succinate 50 mg 50 mg PO QAM #90 tab 06/12/20 07/19/20 Rx tablet,extended release 24 hr pantoprazole 40 mg tablet,delayed 40 mg PO QAM #90 tab 06/12/20 07/19/20 Rx release potassium chloride 20 mEq 40 meq PO QAM #180 tab 06/12/20 07/19/20 Rx tablet,extended release lisinopril 20 mg tablet 20 mg PO QAM #30 tab 07/03/20 07/19/20 Rx acetaminophen [Tylenol] 650 mg PO TID PRN 07/19/20 07/19/20 History gabapentin 300 mg PO QAM 07/19/20 07/19/20 History gabapentin 600 mg PO QPM 07/19/20 07/19/20 History Past Med/Surg History Medical History (Updated 07/20/20 @ 02:02 by Izaiah Oh MD) Barretts esophagus GERD (gastroesophageal reflux disease) Hypertension Hypothyroidism West Nile fever meningitis Surgical History History of abdominal surgery mesenteric artery repair History of adenoidectomy History of ankle fusion right History of endoscopic sinus surgery History of surgery right neck lymph node removal with radiation therapy (was benign) History of tooth extraction wisdom teeth Hx of vasectomy Status post total hip resurfacing left Social History Smoking Status: Never smoker Second Hand Exposure: No; Hx Alcohol Use: Yes Alcohol type: beer, wine and hard liquor Hx Substance Use: No Preferred Language: Austrian Communication Ability: Effective Scrub Tech Required: No Beliefs That Will Affect Care: None Current Living Situation: Spouse Other Information That Helps Us Care for You: No Feels Safe at Home: Yes Safety Concerns: Feels Safe At This Time Assistive Devices: Glasses Review of Systems Review of Systems: The patient denies chest pain, palpitations, lower extremity swelling, sore throat, fevers, chills, sweats, nausea, vomiting, constipation, abdominal pain, pelvic pain, blood in urine or stool, dysuria, urinary frequency or urgency, lightheadedness, dizziness, headache, memory loss, loss of consciousness, rash, abnormal bruising or bleeding, imbalance, focal or generalized weakness, numbness or tingling in arms or legs, generalized arthralgias or myalgias, back or neck pain, or night sweats. The review of systems is otherwise negative other than for that already noted above, and at least 10 systems have been reviewed. Physical Exam Physical Exam: The patient is awake, alert and oriented 3, well developed and well nourished, normocephalic and atraumatic, lying in bed and in no acute distress. HEENT--PERRL, EOMI, mucous membranes and oropharynx normal. Neck--supple. No JVD. No bruits. Thyroid normal, trachea midline, no adenopathy. Heart--normal S1 and S2. No murmurs, rubs or gallops. Lungs--few coarse breath sounds. No respiratory distress, no accessory muscle use. Abdomen--normal bowel sounds and soft. Nontender. Nondistended, no hernias or masses, no organomegaly. Extremities--no cyanosis or clubbing. No edema. Dermatologic--normal skin turgor, normal color, no abnormal lymph nodes, no rash. Neurologic--cranial nerves II through XII grossly intact. Rheumatologic--normal range of motion. Psychiatric--normal affect. Results & Data Results & Data ([facility]) Vital Signs (Past 12 Hours) Vital Signs Temp Pulse Pulse Resp BP BP Pulse Ox 07/19/20 20:20 85 20 157/76 H 95 07/19/20 19:05 92 H 22 152/98 H 92 07/19/20 17:43 98.4 F 79 20 160/101 H 96 Laboratory Results Laboratory Results WBC 4.74 K/uL (4.8-10.8) L 07/19/20 18:44 RBC 5.48 M/uL (4.7-6.1) 07/19/20 18:44 Hgb 16.7 g/dL (14.0-18.0) 07/19/20 18:44 Hct 46.1 % (42-52) 07/19/20 18:44 MCV 84.1 fL (80-100) 07/19/20 18:44 MCH 30.5 pg (25-34) 07/19/20 18:44 MCHC 36.2 g/dL (32-36) H 07/19/20 18:44 RDW Std Deviation 39.4 fL (36.4-46.3) 07/19/20 18:44 RDW Coeff of Brent 12.9 % (11.5-14.5) 07/19/20 18:44 Plt Count 150 K/uL (130-400) 07/19/20 18:44 MPV 10.7 fL (7.4-10.4) H 07/19/20 18:44 Immature Gran % (Auto) 0.2 % 07/19/20 18:44 Neut % (Auto) 60.1 % 07/19/20 18:44 Lymph % (Auto) 26.2 % 07/19/20 18:44 [place] % (Auto) 11.4 % 07/19/20 18:44 Eos % (Auto) 2.1 % 07/19/20 18:44 Baso % (Auto) 0.0 % 07/19/20 18:44 Neut # (Auto) 2.85 K/uL (1.4-6.5) 07/19/20 18:44 Lymph # (Auto) 1.24 K/uL (1.2-3.4) 07/19/20 18:44 [place] # (Auto) 0.54 K/uL (0.11-0.59) 07/19/20 18:44 Eos # (Auto) 0.10 K/uL (0-0.5) 07/19/20 18:44 Baso # (Auto) 0.00 K/uL (0-0.2) 07/19/20 18:44 Immature Gran # (Auto) 0.01 K/uL (0.00-0.02) 07/19/20 18:44 ESR 6 mm/hr (0-14) 07/19/20 18:44 D-Dimer 580 ug/L FEU (0-500) H* 07/19/20 18:44 Sodium 140 mmol/L (136-145) 07/19/20 18:44 Potassium 3.2 mmol/L (3.5-5.1) L 07/19/20 18:44 Chloride 99 mmol/L (98-107) 07/19/20 18:44 Carbon Dioxide 32 mmol/L (21-32) 07/19/20 18:44 Anion Gap 9.0 (3-11) 07/19/20 18:44 BUN 20 mg/dl (7-18) H 07/19/20 18:44 Creatinine 1.07 mg/dl (0.6-1.4) 07/19/20 18:44 Est Cr Clr Drug Dosing 109.9 ml/min 07/19/20 18:44 Est GFR ( Amer) 88.2 07/19/20 18:44 Est GFR (Non-Af Amer) 76.1 07/19/20 18:44 BUN/Creatinine Ratio 19.0 (10-20) 07/19/20 18:44 Glucose 97 mg/dl (70-99) 07/19/20 18:44 Lactate 0.5 mmol/L (0.4-2.0) 07/19/20 18:44 Calcium 8.8 mg/dl (8.5-10.1) 07/19/20 18:44 Ferritin 145.3 ng/ml (8-388) 07/19/20 18:44 Total Bilirubin 0.6 mg/dl (0.2-1) 07/19/20 18:44 AST 79 U/L (15-37) H 07/19/20 18:44 ALT 99 U/L (12-78) H 07/19/20 18:44 Alkaline Phosphatase 72 U/L (45-117) 07/19/20 18:44 Total Creatine Kinase 184 U/L (39-308) 07/19/20 18:44 CK-MB (CK-2) 1.8 ng/ml (0.5-3.6) 07/19/20 18:44 CK/CKMB % Calc 1.0 (0-3.0) 07/19/20 18:44 Troponin I 0.081 ng/ml (0-0.045) H* 07/20/20 00:26 C-Reactive Protein 0.75 mg/dl (0-0.29) H 07/19/20 18:44 NT-Pro-B Natriuret Pep 43 pg/ml (0-900) 07/19/20 18:44 Total Protein 7.1 gm/dl (6.4-8.2) 07/19/20 18:44 Albumin 3.6 gm/dl (3.4-5.0) 07/19/20 18:44 Globulin 3.5 gm/dl (2.5-4.0) 07/19/20 18:44 Albumin/Globulin Ratio 1.0 (0.9-2) 07/19/20 18:44 Procalcitonin < 0.05 ng/ml (0-0.5) 07/19/20 18:44 Urine Color Yellow 07/19/20 22:08 Urine Appearance Clear (Clear) 07/19/20 22:08 Urine pH 7.0 (4.5-7.5) 07/19/20 22:08 Ur Specific [place] 1.010 (1.000-1.030) 07/19/20 22:08 Urine Protein Negative (Negative) 07/19/20 22:08 Urine Glucose (UA) Negative (Negative) 07/19/20 22:08 Urine Ketones Negative (Negative) 07/19/20 22:08 Urine Blood Negative (Negative) 07/19/20 22:08 Urine Nitrite Negative (Negative) 07/19/20 22:08 Urine Bilirubin Negative (Negative) 07/19/20 22:08 Urine Urobilinogen Negative (Negative) 07/19/20 22:08 Ur Leukocyte Esterase Negative (Negative) 07/19/20 22:08 Diagnostic Findings [place], [place] [phone] XRay Report Patient: ELA CEBALLOS CAdmit Date: 07/19/20 MR#: [id number]: [address] Acct ID:[id number]: Date: [address] Zip: [place] [address] Age: 59Location: ED Sex: MRoom/Bed: Att Phy:Diagnosis: DYSPNEA, COUGH Maribell Phy: Ian Oconnor MDService Date: 07/19/20 Fam Phy:Interpreting Phy: Panda Mora MD Admit Phy: Ordering Phy: Iron Rayo MD cc: ~ XR chest 1V portable CLINICAL HISTORY: Shortness of breath. COMPARISON STUDY: Chest radiograph January 20, 2019. FINDINGS: Lung volumes are at the lower limits of normal. Moderate cardiomegaly is noted. There is pulmonary vascular congestion. No consolidation is identified. There is no pneumothorax or pleural effusion. IMPRESSION: Cardiomegaly with pulmonary vascular congestion. ACT 112: Negative or not required by law. Electronically signed by: Panda Mora M.D. 07/19/2020 7:36 PM Dictated: 07/19/201934 Transcribed: 07/19/201934 [facility] Patient: ELA CEBALLOS (Male) : 62 Status: ER Date: 07/19/20 21:34 Room #: History: covid symptoms, positive covid testing, shortness of breath worsening last couple of days, rule out pe Slices: [phone] Priors: Tech: Isabel Martinez @ [phone] Exams: CTA CHEST Contrast: IV Amt: 119ml of optiray 320 Accession Numbers: [id number] Preliminary Findings Only See Final Report For Complete Findings CTA CHEST: Mild patchy bilateral groundglass infiltrates concerning for pneumonia, to incl ude viral pneumonia such as Covid-19. No pleural effusion or pneumothorax. No acute pulmonary embolism. No thoracic aortic aneurysm. Normal heart size. Coronary artery atherosclerosis. No pericardial effusion. No acute osseous findings. Radiologist: Deepika Parsons M.D. Study ready at 21:44 and initial results transmitted at 21:52 *This report constitutes a preliminary interpretation only. Non-acute findings felt to be unrelated to the clinical presentation may not be discussed in this report. The study will be interpreted and a final report will be generated by the local Radiologist the following shift. To reach the hospital radiology department call [phone]. If a discrepancy is found between the preliminary and final interpretations of this study, please notify us via our Client Portal at [email or web address], under QA Exams.You can also fax this report with a description of the discrepancy, or include the final report, to our daytime fax number [phone].If faxing, please indicate the severity of discrepancy using one of the following categories: [ ] 1 - Agree/Informational [ ] 2 - Unlikely to Affect Management [ ] 3 - Possible Eventual Change of Management [ ] 4 - Probable Immediate Change of Management For all other patient related information, please fax us at [phone]. [id number] Code Status & VTE Plan Code Status Full code VTE Prophylaxis Plan VTE Prophylaxis will be ordered: Yes PG Care Time/CCT Total # of Minutes Spent Total Time Spent with Patient: Total time spent is greater than 50% in coordination of care (as documented) at patient's floor/unit and/or counseling patient: Coding Level of Care Code 74339 Initial Inpt Care Lvl 3 Diagnoses Pneumonia due to COVID-19 virus U07.1; J12.89 Non-STEMI (non-ST elevated myocardial infarction) I21.4 Hypothyroid E03.9 Hypothyroidism type: acquired Hypertension I10 Hypertension type: essential hypertension Hypokalemia due to excessive renal loss of potassium E87.6 GERD with esophagitis K21.0 Norton's esophagus K22.70 (1) Hypothyroid Hypothyroidism type: acquired Qualified Code(s): E03.9 - Hypothyroidism, unspecified (2) Hypertension Hypertension type: essential hypertension Qualified Code(s): I10 - Essential (primary) hypertension
[2020-07-19] MEDS ORDERED: OPTIRAY 320 125ml IV ONE (21:32)
[2020-07-19 22:41] LABS: Appearance Urine Clear (Clear); Bilirubin Urine Negative (Negative); Blood Urine Negative (Negative); Color Urine Yellow; Glucose Urine UA Negative (Negative); Ketones Urine Negative (Negative); Leukocyte Esterase Urine Negative (Negative); Nitrite Urine Negative (Negative); Protein Urine Negative (Negative); Urobilinogen Urine Negative (Negative)
[2020-07-19] MEDS ORDERED: MAGNESIUM HYDROXIDE SUSP 30 ML UDC PO PRN (23:34)
[2020-07-19] MEDS ORDERED: ONDANSETRON INJ 2 MG/ML 2 ML VIAL IV PRN (23:34)
[2020-07-19] MEDS ORDERED: ACETAMINOPHEN 325 MG TAB PO PRN (23:34)
[2020-07-19] MEDS ORDERED: NITROGLYCERIN SL 0.4 MG/TAB TAB SL PRN (23:34)
[2020-07-19] MEDS ORDERED: GABAPENTIN 300 MG CAP PO SCH (23:34)
[2020-07-19] MEDS ORDERED: [UNRECOGNIZED DRUG - OTHER] ID ONE (23:34)
[2020-07-19] MEDS ORDERED: ALBUTEROL HFA 8 GM INHALER INH PRN (23:34)
[2020-07-19] MEDS ORDERED: ALUMINUM/MAGNESIUM SUSP 30 ML UDC PO PRN (23:34)
[2020-07-19] MEDS ORDERED: TUBERCULIN PPD ID ONE (23:34)
[2020-07-20] MEDS ORDERED: TUBERCULIN SKIN TEST 5 TU in SYRINGE 0 ML ID SCH
[2020-07-20] MEDS ORDERED: cefTRIAXone SODIUM 2,000 MG in DEXTROSE 5% 50 ML IV SCH
[2020-07-20] MEDS ORDERED: VANCOMYCIN CONSULT ACTIVE PRN (02:02)
[2020-07-20] MEDS ORDERED: VANCOMYCIN HCL 1,000 MG in SODIUM CHLORIDE 0.9% 250 ML IV SCH (02:15)
[2020-07-20] MEDS ORDERED: VANCOMYCIN HCL 2,750 MG in SODIUM CHLORIDE 0.9% 500 ML IV ONE (02:30)
[2020-07-20] MEDS ORDERED: LEVOTHYROXINE SODIUM 175 MCG TABLET PO SCH (06:30)
[2020-07-20 07:41] LABS: Hematocrit (blood only) 46.7 % (42-52); Hemoglobin 16.4 g/dL (14.0-18.0); Lymphocytes # (auto) 1.31 K/uL (1.2-3.4); Lymphocytes % (auto) 29.5 %; Mean Corpuscular Hemoglobin 28.9 pg (25-34); Mean Corpuscular Hgb Conc 35.1 g/dL (32-36); Mean Corpuscular Volume 82.4 fL (80-100); Mean Platelet Volume 10.4 fL (7.4-10.4); Monocytes # (auto) 0.31 K/uL (0.11-0.59); Neutrophils # (auto) 2.82 K/uL (1.4-6.5); Neutrophils % (auto) 63.5 %; Platelet Count 147 K/uL (130-400); RDW Coefficient of Variation 12.6 % (11.5-14.5); RDW Standard Deviation 37.5 fL (36.4-46.3); Red Blood Count 5.67 M/uL (4.7-6.1); White Blood Count 4.44 K/uL (4.8-10.8)
[2020-07-20] MEDS ORDERED: DEXAMETHASONE SOD PHOSPHATE 6 MG in SYRINGE 0 ML IV SCH (08:00)
[2020-07-20] MEDS ORDERED: dexAMETHasone 6 MG in DEXTROSE 5% 25 ML IV SCH (08:00)
--- NOTE | 2020-07-20 08:15 | CT Scan Report ---
CT ANGIOGRAM OF THE CHEST CLINICAL HISTORY: Dyspnea. Fever. Positive Covid infection. COMPARISON STUDY: Chest x-ray dated 07/19/2020. TECHNIQUE: Following the IV administration of 119 cc of Optiray 320, CT angiogram of the chest was pe rformed from the upper abdomen to the thoracic inlet utilizing the pulmonary embolus protocol. Images are reviewed in the axial, sagittal, and coronal planes. 3-D MIPS images are created and assessed. I V contrast was administered without complication. A dose lowering technique was utilized adhering to the principles of ALARA. CT DOSE: 983.24 mGy.cm FINDINGS: Thyroid: Atrophic. Thoracic aorta: There is mild atherosclerotic calcification of the thoracic aorta, which is normal in caliber and demonstrates standard 3-vessel arch anatomy. No dissection is seen. Pulmonary vasculature: The pulmonary trunk is normal in caliber. There are no filling defects identif ied in main, lobar, or segmental pulmonary branches to suggest pulmonary embolus. Heart: The heart is mildly enlarged and without pericardial effusion. There are coronary artery calci fications. Lungs and pleural spaces: There is patchy groundglass consolidation identified in the upper lobes. Arredondo bpleural groundglass change is identified in the lower lobes, and the appearance is consistent with a n infectious/inflammatory pneumonitis. No pleural effusion is identified. The trachea and central air ways are clear. A 4 mm focus of pleural-based nodularity in the right middle lobe is seen along the m inor fissure on image #164. A 3 mm right middle lobe pulmonary nodule is seen on image #140. Mediastinum: There is no mediastinal lymphadenopathy. Rosa: Clear. Axillae: There is no axillary lymphadenopathy. Upper abdomen: There is a small hiatal hernia. The liver appears steatotic in the spleen appears enla rged. Skeletal structures: No lytic or blastic bony lesions are seen. There are healed right-sided rib frac tures. IMPRESSION: 1. There is no evidence of pulmonary embolus in the main, lobar, or segmental pulmonary arteries. 2. Multifocal groundglass consolidation is seen throughout both lungs as above. The appearance is typ ical for an infectious/inflammatory pneumonitis. Radiographic follow-up to resolution is recommended. 3. Mild cardiac enlargement. 4. No pleural effusion is identified. 5. The liver appears enlarged and steatotic. ACT 112: Negative or not required by law. Electronically signed by: Kd Snowden M.D. 07/20/2020 8:13 AM
[2020-07-20 08:23] LABS: Albumin Level 3.4 gm/dl (3.4-5.0); BUN Creatinine Ratio 17.5 (10-20); Calcium 9.1 mg/dl (8.5-10.1); Creatinine Clr Calc Pharmacy 108.7 ml/min; Est GFR (African American) 88.2; Est GFR (Non-African American) 76.1; Magnesium 2.1 mg/dl (1.8-2.4); Potassium 3.4 mmol/L (3.5-5.1)
[2020-07-20 08:30] LABS: Phosphorus 2.7 mg/dl (2.5-4.9); Troponin I 0.056 ng/ml (0-0.045)
[2020-07-20] MEDS ORDERED: POTASSIUM CHLORIDE 20 MEQ TABCR PO SCH (09:00)
[2020-07-20] MEDS ORDERED: ASPIRIN 81 MG ECTAB PO SCH (09:00)
[2020-07-20] MEDS ORDERED: guaiFENesin 600 MG TABCR PO SCH (09:00)
[2020-07-20] MEDS ORDERED: GABAPENTIN 300 MG CAP PO SCH ×2 (09:00→21:00)
[2020-07-20] MEDS ORDERED: METOPROLOL SUCC 50MG EXT REL TAB PO SCH (09:00)
[2020-07-20] MEDS ORDERED: PANTOprazole 40 MG TAB PO SCH (09:00)
[2020-07-20] MEDS ORDERED: MULTIVITAMIN TAB PO SCH (09:00)
--- NOTE | 2020-07-20 10:19 | Discharge Summary ---
Date of Service July 20, 2020 Admission HPI Per Admitting Provider The patient is a 59-year-old male with a past medical history including GERD with esophagitis, hypothyroidism, hypertension, Lyme disease, West Nile fever meningitis, Norton's esophagus and cellulitis. He reports being diagnosed with COVID-19 on 07/10/2020 and had been practicing home quarantining. He was attempting exercise over the past few days, and became atypically short of breath, and presents to the ED for assessment. In the emergency department, work-up included laboratories with potassium 3.2, ALT 99, troponin 0 0.08. Chest x-ray showed cardiomegaly and signs of pulmonary venous congestion. The p atient was placed on Decadron 10 mg IV, azithromycin 5 mg IV, potassium chloride 40 mEq and Ventolin HFA by the ED, and was referred for evaluation for admission. Upon questioning, patient does report a mildly congested cough that is nonproductive. He also reports upon questioning the recent development of loose stools. Of note, patient's 22-year-old son was initially diagnosed with COVID-19 about 14 days ago, and his was diagnosed at about the same time as the patient. Principal Diagnosis COVID 19 viral infection, mild viral pneumonia Discharge Exam Constitutional WD/WN, vitals as above Eyes PERRL, conjunctivae normal, anicteric sclerae ENMT external ear and nose normal, oropharynx normal Neck trachea midline, no thyromegaly Respiratory normal respiratory effort, lungs clear to auscultation Cardiovascular RRR, no murmur, no edema Gastrointestinal (Abdomen) normal bowel sounds, soft, nontender, no hepatosplenomegaly Musculoskeletal no cyanosis or clubbing, extremities motor strength 5/5 Skin no rashes, warm and dry Neurologic patellar DTR's 2+ bilat, sensation intact and PERRL, EOMI, accommodation nl, no face palsy, no dysarthria Psychiatric A+Ox3, euthymic affect Lymphatic no cervical or axillary lymphadenopathy Discharge Data Allergies Allergy/AdvReac Type Severity Reaction Status Date / Time No Known Allergies Allergy Unknown Verified 07/19/20 21:51 Consultations 07/19/20 20:01 ED Decision to Admit Stat Ordered Studies 07/19/20 20:01 CT angio chest PE protocol Urgent Hospital Course (1) Pneumonia due to COVID-19 virus: patient with known COVID 19 diagnosis, he was self quarantined at home noticed increased dyspnea on exertion, in fact he was riding his bike and was climbing hills which finally made him short of breath CT of the chest with minimal ground glass changes, certainly no signs of severe pneumonia no hypoxia yesterday or today, he is ambulating in the room without any dyspnea, just has a dry cough will discharge home on Dexamethasone 6mg PO daily x 8 more days Zithromax 250mg daily x 4 more days Zinc 110mg BID x 7 days codeine 10mL q6 PRN for cough stay well hydrated, well nourished and get rest he has a pulse ox at home and knows to come to hospital if his oxygen saturations drop below 90% follow up with his PCP, Dr. Oconnor, in one week (2) Hypothyroid: Continue levothyroxine sodium 125 mcg daily (3) Hypertension: BP stable (4) Hypokalemia due to excessive renal loss of potassium: resolved (5) GERD with esophagitis: GERD with esophagitis/Norton's esophagus- Continue pantoprazole 40 mg daily (6) Norton's esophagus: See above Total Time Total Time Spent Total Time Spent (In Minutes): 32 minutes Total Time Includes: Examination of the Patient, Discharge Planning and Medication Reconciliation Discharge Plan Discharge Items Patient Disposition: Home - Self-Care Reason For Visit: COVID 19, PNEUMONIA Discharge Diagnosis: COVID 19 viral infection Mild pneumonia, no hypoxia Condition on Discharge: Good Activity: Resume your previous activity Non-emergency contact: Primary Care Provider Call non-emergency contact if: you have any medication questions, your symptoms worsen and you have a fever Follow-up/Referrals: Ian Oconnor MD [Primary Care Provider] - (one week, can be a phone call) Diet: Heart Healthy Addtl Attending Provider Instructions: Medications: - DEXAMETHASONE: 6mg daily x 8 more days - ZINC: 110mg capsule twice a day for 7 days - ZITHROMAX: 250mg daily x 4 more days - CODEINE/GUAFENISINE: take every 6 hours as needed for cough COVID 19 infection, mild viral pneumonia infection is classified as severe if you are hypoxic, you have not required any oxygen while here CT of the chest shows some very subtle ground glass opacities but nothing severe recommend treating with Dexamethasone, Zithromax, Zinc use Codeine as needed for cough get rest, stay well hydrated and well nourished, you can exert yourself but do not be alarmed if you get short of breath faster than normal or take longer to recover get a pulse oximeter to use at home would only chest your pulse ox if you are feeling short of breath at rest, basically if you get worse compared to now if your pulse ox is less than 90% on room air at rest then you should return to hospital, but I anticipate you will continue to feel better continue to stay quarantined, CDC recommends 10 days from last fever call Dr. Oconnor with any questions or issues Pending Studies at Discharge: No Stand-Alone Forms: My [facility] [employer], Smoking Cessation Medications and DC Order Prescriptions: New dexamethasone 2 mg tablet 6 mg PO DAILY 8 Days Qty: 24 RF: 0 azithromycin [Zithromax] 250 mg tablet 250 mg PO DAILY 4 Days Qty: 4 RF: 0 zinc sulfate 110 mg (25 mg zinc) tablet 110 mg PO BID Qty: 14 RF: 0 codeine-guaifenesin 10-100 mg/5 mL liquid 10 ml PO Q6H PRN (Reason: cough) 10 Days Qty: 120 RF: 0 Continued sildenafil 100 mg tablet 100 mg PO DAILY PRN (Reason: Sexual Activity) Qty: 30 RF: 5 lisinopril 20 mg tablet 20 mg PO QAM Qty: 30 RF: 11 celecoxib [Celebrex] 200 mg capsule 200 mg PO QAM Qty: 90 RF: 3 indapamide 2.5 mg tablet 2.5 mg PO QAM Qty: 90 RF: 1 levothyroxine 175 mcg tablet 175 mcg PO QAM Qty: 90 RF: 1 metoprolol succinate 50 mg tablet extended release 24 hr 50 mg PO QAM Qty: 90 RF: 1 pantoprazole 40 mg tablet,delayed release (DR/EC) 40 mg PO QAM Qty: 90 RF: 1 potassium chloride 20 mEq tablet extended release 40 meq PO QAM Qty: 180 RF: 3 multivitamin Tablet 1 tab PO QAM RF: 0 aspirin 81 mg Tablet,Delayed Release (Dr/Ec) 81 mg PO QAM RF: 0 acetaminophen [Tylenol] 325 mg Tablet 650 mg PO TID PRN (Reason: Fever Or Pain) RF: 0 gabapentin 300 mg capsule 300 mg PO QAM RF: 0 gabapentin 300 mg capsule 600 mg PO QPM RF: 0 Discharge Orders: Discharge Order (Routine); Ordered 07/20/20 Ordered By: Dirk Castaneda/Other Patient Handouts: 2019-nCoV, COVID-19 Home Care, Disinfecting Your Home of COVID-19 Admission Data Admit Date/Time: 07/19/20 21:14 Attending Provider: Dirk Piper Admit Provider: Izaiah Oh Primary Care Provider: Ian Oconnor Other Providers: Izaiah Oh Other Interventions: Discharge Summary Assessment (RN) Last Done: 07/20/20 13:52 Coding Level of Care Code D/C Day Management >30 mins Diagnoses Pneumonia due to COVID-19 virus U07.1; J12.89 Hypothyroid E03.9 Hypothyroidism type: acquired Hypertension I10 Hypertension type: essential hypertension Hypokalemia due to excessive renal loss of potassium E87.6 GERD with esophagitis K21.0 Norton's esophagus K22.70
[2020-07-20] MEDS ORDERED: VANCOMYCIN HCL 1,250 MG in SODIUM CHLORIDE 0.9% 250 ML IV SCH (12:00)
[2020-07-20] MEDS ORDERED: VANCOMYCIN HCL 1,500 MG in SODIUM CHLORIDE 0.9% 500 ML IV SCH (12:00)
[2020-07-20] MEDS ORDERED: AZITHROMYCIN 500 MG in DEXTROSE 5% 250 ML IV SCH (21:00)
--- NOTE | 2020-07-21 05:33 | Electrocardiogram Report ---
Test Reason : Blood Pressure : / mmHG Vent. Rate : 071 BPM Atrial Rate : 071 BPM P-R Int : 188 ms QRS Dur : 080 ms QT Int : 410 ms P-R-T Axes : 011 -01 035 degrees QTc Int : 445 ms Sinus rhythm with Premature atrial complexes with Aberrant conduction with ventricular escape complex es Otherwise normal ECG When compared with ECG of 10-MAR-2019 10:59, Sinus rhythm is now with ventricular escape complexes Confirmed by Morgan Lockett ([id number]) on 07/21/2020 5:33:04 AM Referred By: Ian Oconnor Confirmed By:Morgan Lockett
[2020-07-21] MEDS ORDERED: PPD CHECK SCH (23:34)
[2020-07-22] MEDS ORDERED: PPD CHECK SCH
== END 2020-07-20 15:00 | disposition home or self-care (01) | DRG 177 ==
LOC: ED 17:25 → 2E 21:14 → SUATTDRO 21:14 → 2E 22:55